=== PATIENT | female | born 1960 | race Caucasian/White ===

== ENCOUNTER 2018-04-24 22:47 | Emergency (ER) | payer BC, OTHER ==
[~2018-04-24] VITALS: Ht 175.3 cm; Wt 90.7 kg
[~2018-04-24 22:47] MED LIST: ALPR2TAB2 OR; CITA-73 OR; INSLANTI SC; INSUPOW SC; OMEP20TA34 OR; PRO20T PO; TRAZ100T2 OR
[2018-04-24] MEDS ORDERED: SODIUM CHLORIDE 0.9% 500 ML IV ONE (23:40)
[2018-04-25 00:01] LABS: Basophils # (auto) 0.2 uL; Basophils % (auto) 1.1 % (0.0-2.0); Eosinophils # (auto) 0.3 uL; Eosinophils % (auto) 2.3 % (0.0-7.0); Hematocrit 33.3 % (36.0-46.0); Hemoglobin 10.2 g/dL (12.2-16.2); Lymphocytes # (auto) 3.2 uL; Lymphocytes % (auto) 22.4 % (10.0-50.0); Mean Corpuscular Hemoglobin 26.3 pg (28.0-32.0); Mean Corpuscular Hgb Conc. 30.6 g/dL (32.0-36.0); Mean Corpuscular Volume 86.1 fL (80.0-100.0); Monocytes # (auto) 1.3 uL; Monocytes % (auto) 9.5 % (0.0-12.0); Neutrophils # (auto) 9.2 uL; Neutrophils % (auto) 64.7 % (37.0-80.0); Platelet Count (auto) 268 10^3/uL (140-450); Red Blood Cells 3.86 10^6/uL (4.0-5.20); Red Cell Distribution Width 17.1 % (11.8-14.3); White Blood Cell 14.2 10^3/uL (4.4-10.8)
[2018-04-25 00:16] LABS: INR 0.88 (0.9-1.15); Partial Thromboplastin Time 25.9 sec (23.78-33.04); Prothrombin Time 9.5 sec (9.27-12.13)
[2018-04-25 00:23] LABS: Alanine Aminotransferase 24 U/L (13-56); Albumin 2.9 g/dL (3.4-5.0); Anion Gap 12 (5-15); Aspartate Aminotransferase 17 U/L (15-37); BUN/Creatinine Ratio 17.6; Blood Urea Nitrogen 39 mg/dL (7-18); Calcium 7.5 mg/dL (8.5-10.1); Carbon Dioxide 19 mmol/L (21-32); Chloride 111 mmol/L (98-107); GFR African American 29 mL/min; GFR Non-African American 24 mL/min; Glucose 92 mg/dL (74-106); Potassium 3.7 mmol/L (3.5-5.1); Sodium 142 mmol/L (136-145)
[2018-04-25 00:27] LABS: Alkaline Phosphatase 128 U/L (45-117); Bilirubin, Total 0.5 mg/dL (0.2-1.0); Total Protein 6.7 g/dL (6.4-8.2)
[2018-04-25 03:06] VITALS: BP 154/74
[2018-04-25 05:00] LABS: Urine Bacteria FEW /hpf (None Seen); Urine Blood Negative /uL (Negative); Urine Specific Gravity 1.009 (1.001-1.035); Urine WBC 7 /hpf (0 - 5); Urine WBC Clumps PRESENT /hpf (None Seen)
== END 2018-04-25 04:23 | disposition home or self-care (01) ==
LOC: EDBD 22:47 → EDUNIT# 22:47 → ER 22:51
DX: E11.649 Type 2 diabetes mellitus with hypoglycemia without coma (principal); E11.22 Type 2 diabetes mellitus with diabetic chronic kidney disease; N18.9 Chronic kidney disease, unspecified; Z79.4 Long term (current) use of insulin; Z88.0 Allergy status to penicillin; Z88.8 Allergy status to other drugs, medicaments and biological substances
CPT/HCPCS: 36415; 70450; 71045; 80053; 81001; 83735; 83880; 84484; 85025; 85610; 85730; 93005; 94761

== ENCOUNTER 2018-12-09 13:59 | Inpatient (IN) | payer MEDICARE ==
[~2018-12-09] VITALS: Ht 170.2 cm; Wt 98.2 kg
[~2018-12-09 13:59] MED LIST changes: +ALLO100T PO; +ALPR0.5T7 PO; -ALPR2TAB2 OR; +ATOR10TA PO; +BUME2TAB3 PO; -CITA-73 OR; +FERR27TA2 PO; +FLUT500M2 IN; +GABA300C10 PO; +GLUC-163 PO; -INSUPOW SC; +IRONTAB33 OR; +MAGN400C2 PO; +METO5TAB56 PO; +MONT4CHW9 PO; +OME40GT GT; -OMEP20TA34 OR; +POTA10TA51 PO; +PRE5T GT; +SERT-135 PO; +TRAM50TA2 PO; -TRAZ100T2 OR
[2018-12-09 16:30] LABS: Basophils # (auto) 0.1 uL; Basophils % (auto) 0.5 % (0.0-2.0); Eosinophils # (auto) 0 uL; Eosinophils % (auto) 0.2 % (0.0-7.0); Hematocrit 40.3 % (36.0-46.0); Hemoglobin 12.5 g/dL (12.2-16.2); Lymphocytes # (auto) 1.6 uL; Lymphocytes % (auto) 11.3 % (10.0-50.0); Mean Corpuscular Hemoglobin 27.5 pg (28.0-32.0); Mean Corpuscular Hgb Conc. 31.1 g/dL (32.0-36.0); Mean Corpuscular Volume 88.3 fL (80.0-100.0); Monocytes # (auto) 1.1 uL; Monocytes % (auto) 7.6 % (0.0-12.0); Neutrophils # (auto) 11.7 uL; Neutrophils % (auto) 80.4 % (37.0-80.0); Platelet Count (auto) 301 10^3/uL (140-450); Red Blood Cells 4.57 10^6/uL (4.0-5.20); White Blood Cell 14.6 10^3/uL (4.4-10.8)
[2018-12-09 16:42] LABS: Calcium 7.9 mg/dL (8.5-10.1); Magnesium 2.2 mg/dL (1.6-2.6); Potassium 3.9 mmol/L (3.5-5.1)
[2018-12-09 16:51] LABS: BUN/Creatinine Ratio 31.3; Bilirubin, Total 0.5 mg/dL (0.2-1.0)
[2018-12-09] MEDS ORDERED: SODIUM CHLORIDE 0.9% 1,000 ML IV ONE ×2 (17:15→22:15)
[2018-12-09] MEDS ORDERED: InsuLIN REG 1unit/0.01ml Soln (100units/ml) IV ONE ×2 (19:00→23:30)
[2018-12-09] MEDS ORDERED: SODIUM CHLORIDE 0.9% 1,000 ML IVB ONE (20:28)
[2018-12-09 20:42] LABS: Partial Thromboplastin Time 27.1 sec (23.78-33.04); Prothrombin Time 10.7 sec (9.27-12.13)
[2018-12-09 21:05] LABS: Urine Bacteria FEW /hpf (None Seen); Urine Blood Negative /uL (Negative); Urine Hyaline Cast FEW /lpf (0 - 2); Urine Specific Gravity 1.012 (1.001-1.035); Urine WBC 1 /hpf (0 - 5)
[2018-12-09] MEDS ORDERED: MORPHINE SULFATE 4 MG/ML SYR/VIAL IV PRN (22:15)
[2018-12-09] MEDS ORDERED: NITROGLYCERIN 0.4 MG SL TAB SL PRN (22:15)
[2018-12-10 05:05] LABS: Basophils # (auto) 0.1 uL; Basophils % (auto) 0.7 % (0.0-2.0); Eosinophils # (auto) 0 uL; Eosinophils % (auto) 0.1 % (0.0-7.0); Hematocrit 37.4 % (36.0-46.0); Hemoglobin 11.7 g/dL (12.2-16.2); Lymphocytes # (auto) 2.2 uL; Lymphocytes % (auto) 18.9 % (10.0-50.0); Mean Corpuscular Hemoglobin 27.3 pg (28.0-32.0); Mean Corpuscular Hgb Conc. 31.2 g/dL (32.0-36.0); Mean Corpuscular Volume 87.5 fL (80.0-100.0); Monocytes # (auto) 1.2 uL; Monocytes % (auto) 10.7 % (0.0-12.0); Neutrophils # (auto) 8.1 uL; Neutrophils % (auto) 69.6 % (37.0-80.0); Platelet Count (auto) 285 10^3/uL (140-450); Red Blood Cells 4.28 10^6/uL (4.0-5.20); Red Cell Distribution Width 15.9 % (11.8-14.3); White Blood Cell 11.7 10^3/uL (4.4-10.8)
[2018-12-10 05:29] LABS: Albumin 2.8 g/dL (3.4-5.0); Calcium 8.1 mg/dL (8.5-10.1); Potassium 3.4 mmol/L (3.5-5.1)
[2018-12-10 05:34] LABS: BUN/Creatinine Ratio 31.4; Bilirubin, Total 0.5 mg/dL (0.2-1.0); Total Protein 6.4 g/dL (6.4-8.2)
--- NOTE | 2018-12-10 08:24 | NUR ---
Telemetry admit from ER [place] admitted to Telemetry unit after SBAR received. Patient confused and unable to orient patient to Heidi Wan RN primary RN, [facility] unit, room 248, bed B, and unit policies regarding patient care and visiting hours. Patient now on continuous telemetry monitoring, tele box # 11 and telemetry reading on arrival to unit is Sinus Tach. Patient weighed by bedscale and encouraged sitter to call if they need something. Will continue to monitor. Note:
--- NOTE | 2018-12-10 08:40 | NUR ---
Dr Bang paged to inform MD of pt BS of 505 from ER report. No orders for insulin in place. Will continue to monitor.
[2018-12-10 08:57] VITALS: BP 145/73
[2018-12-10] MEDS: PANTOPRAZOLE 40 MG/10 ML VIAL IV SCH (09:35)
[2018-12-10] MEDS: ENOXAPARIN SOD 40 MG/0.4 ML SYRINGE SC SCH (09:36)
--- NOTE | 2018-12-10 09:40 | NUR ---
Dr Bang repaged to inform of pt BS from ER report and to request orders for pain meds. No orders for insulin in place. Will continue to monitor.
--- NOTE | 2018-12-10 10:10 | NUR ---
Dr Bang repaged once again. Will continue to monitor.
[2018-12-10 10:13] LABS: Folate (Folic Acid) 19.22 ng/mL (5.38-24)
--- NOTE | 2018-12-10 10:37 | NUR ---
Dr Bang repaged once again. Will continue to monitor.
--- NOTE | 2018-12-10 11:15 | NUR ---
supervisor steel division made aware that have been attempting to page Dr Bang yet no call back received. Will continue to monitor.
--- NOTE | 2018-12-10 11:30 | NUR ---
Received call back from Dr Bang and made aware of blood sugar of 505 at 0726, along with patient moaning in pain, k+3.4, and that patient uses CPAP at home. New orders received for Insulin moderate scale AC/HS Humalog, Lantus 10u SubQ once, DM diet, Hgb A1C and TSH on 12/11/18, UA culture, Allen 5/325 mg PO Q6P moderate pain, CPAP, 40 mEQ K+ PO once, Hydralazine 10 mg IV Q4HP SBP>150. Will continue to monitor.
[2018-12-10] MEDS ORDERED: POTASSIUM CHL 20 Meq TABLET PO ONE (11:45)
[2018-12-10] MEDS ORDERED: hydrALAZINE HCL 20 MG/ML VL IV PRN (11:45)
[2018-12-10] MEDS ORDERED: DEXTROSE (50%) 50ML SYRG IV PRN ×2 (11:45→12:45)
[2018-12-10] MEDS ORDERED: INSULIN LANTUS (GLARGINE) 1 /0.01ml (100units/ml) SC ONE (11:45)
[2018-12-10] MEDS: HYDROcodone-ACET 5/325MG TAB PO PRN ×2 (12:07→20:57)
[2018-12-10] MEDS ORDERED: InsuLIN REG 1unit/0.01ml Soln (100units/ml) SC SCH ×2 (12:07→22:00)
[2018-12-10] MEDS ORDERED: ACCU-CHEK COMFORT CURVE STRIP VI ONE (12:15)
[2018-12-10] MEDS ORDERED: INSULIN LISPRO (HUMAN) 100 UNITS/ML ML SC SCH ×2 (12:22→22:00)
[2018-12-10] MEDS ORDERED: SODIUM CHLORIDE 0.9% 1,000 ML IV ONE (12:30)
--- NOTE | 2018-12-10 12:40 | NUR ---
Dr Bang at bedside made aware BS 581. Made aware the 10 units of Lantus given and to administer the 15 units of Humalog per sliding scale. Will continue to monitor.
[2018-12-10] MEDS: ACCU-CHEK COMFORT CURVE STRIP VI SCH ×3 (12:42→21:19)
[2018-12-10] MEDS: INSULIN LISPRO (HUMAN) 100 UNITS/ML ML SC SCH ×3 (12:42→21:19)
[2018-12-10 13:00] VITALS: BP 158/7
--- NOTE | 2018-12-10 13:59 | NUR ---
Dr Bang paged and made aware that IV Hydralazine is not available and patient's BP 153/66, P114 STach with PVCs. Made aware that PO Hydralizine is available. Asked if he would like to switch to PO or order something else. No orders received per Dr Bang will continue to monitor and await for further orders.
--- NOTE | 2018-12-10 14:50 | NUR ---
URINE Urine collected for urine culture and sent to lab.
[2018-12-10] MEDS: SODIUM CHLORIDE 0.9% 1,000 ML IV SCH (14:57)
--- NOTE | 2018-12-10 16:36 | NUR ---
Received call from Dr Peters. Made aware that consult for nephro due to ARF BUN 69, RUBBER TIRE CURER 2.20. New orders received for random urine sodium, protein, and creatinine, per Dr Peters may obtain from bates bag. Orders also received for CMP & Ph 12/11/18, and for renal U/S. Will continue to monitor.
[2018-12-10 17:00] VITALS: BP 151/62
[2018-12-10] MEDS ORDERED: ACCU-CHEK COMFORT CURVE STRIP VI SCH (17:00)
--- NOTE | 2018-12-10 19:11 | NUR ---
Patient care and report handed off to Karla GAY.
--- NOTE | 2018-12-10 21:30 | NUR ---
Assumed care of patient, product safety and standards engineer at bedside. Patient in bed crying, speech incomprehensible. Turns and responds to name but unable to answer questions such as where she is, the date, or why she's here. Answers "okay"; moans what sounds like "Ray, Ray, Ray" and "owie, owie, owie". When asked if she hurts she says "yes, yes, yes" while grasping her head. Pain meds administered but did not seem to work for very long. Patient continues to be difficult to console. Will continue to monitor.
[2018-12-10 21:37] VITALS: BP 147/62
--- NOTE | 2018-12-10 22:15 | NUR ---
PATIENT INCONTINENT OF SMALL SOFT BM. HYGIENE PERFORMED AND PARTIAL LINEN CHANGE.
[2018-12-11] MEDS: SODIUM CHLORIDE 0.9% 1,000 ML IV SCH (00:26)
[2018-12-11 02:42] VITALS: BP 147/62
[2018-12-11] MEDS: HYDROcodone-ACET 5/325MG TAB PO PRN ×2 (04:11→22:18)
--- NOTE | 2018-12-11 04:18 | NUR ---
NORCO ADMINISTERED. PATIENT CONTINUES TO REPEATEDLY CRY "AUREA, AUREA VILLAR". APPEARS DEHYDRATED. VIGOROUSLY DRANK 1 1/2 CUPS OF WATER. GAVE PILL BUT KEPT ON POCKETING PILL AND SPITTING IT OUT. I THEN SAID THAT I WOULD WASTE THE PILL, BUT SHE LOOKED UP, AND I ASKED IF SHE WANTED IT AND SHE ANSWERED YES. SHE THEN TOOK IT WILLINGLY.
[2018-12-11 04:27] VITALS: BP 184/86
[2018-12-11] MEDS: ACCU-CHEK COMFORT CURVE STRIP VI SCH ×4 (06:24→22:14)
[2018-12-11] MEDS: INSULIN LISPRO (HUMAN) 100 UNITS/ML ML SC SCH ×4 (06:24→22:14)
--- NOTE | 2018-12-11 06:36 | NUR ---
MESSAGE LEFT FOR DR. HAYWOOD. MESSAGE ALSO LEFT BEFORE SHIFT CHANGE BY DAY NURSE. HOSPITAL IS OUT OF IV HYDRALAZINE AND NEED ORDER FOR PO HYDRALAZINE OR OTHER PRN ANTIHYPERTENSIVE MED. MOST RECENT BP WAS 184/86 AND PULSE 100. REQUESTED THAT HE CALL THE UNIT BACK AND ASK FOR MYSELF BEFORE 0730 OR DAY NURSE CARING FOR PATIENT AFTER 0730.
[2018-12-11 06:46] LABS: Potassium 3.1 mmol/L (3.5-5.1)
--- NOTE | 2018-12-11 06:51 | NUR ---
SHIFT END PATIENT IN BED. CONTINUING TO CRY OUT. SITTER AT BEDSIDE. BED IN LOWEST LOCKED POSITION. STILL AWAITING C/B FROM DR. HAYWOOD CARE ENDORSED TO DAY RN.
[2018-12-11 07:05] LABS: Albumin 2.8 g/dL (3.4-5.0); BUN/Creatinine Ratio 26.7; Bilirubin, Total 0.5 mg/dL (0.2-1.0); Calcium 8.5 mg/dL (8.5-10.1); Phosphorus 2.8 mg/dL (2.5-4.90); Total Protein 6.6 g/dL (6.4-8.2)
--- NOTE | 2018-12-11 07:35 | NUR ---
OPENING NOTE Assumed care of patient from NOC RNKarla. Patient awake and responds to name. No S/S of distress/SOB or pain. Sitter at bedside for patient's safety. Guerrero catheter intact/patent and hung below bed. Bed in lowest, locked position with side rails up x3. Fall/seizure precautions in place and call light within reach. Will continue to monitor for changes Q1hr and PRN.
[2018-12-11 09:00] VITALS: BP 120/72
[2018-12-11] MEDS: SOD CHL 0.45% WITH 20MEQ KCL 1,000 ML IV SCH ×2 (10:53→21:00)
[2018-12-11] MEDS: PANTOPRAZOLE 40 MG/10 ML VIAL IV SCH (10:53)
[2018-12-11] MEDS: ENOXAPARIN SOD 40 MG/0.4 ML SYRINGE SC SCH (10:54)
--- NOTE | 2018-12-11 11:56 | NUR ---
PAGED Paged Dr. Buitrago regarding EEG. Tech unable to perform procedure secondary to patient's inability to sit still with eyes closed. Awaiting call back.
[2018-12-11 13:00] VITALS: BP 138/70
--- NOTE | 2018-12-11 14:50 | NUR ---
AWARE Dr. Buitrago aware of EEG, no new orders at this time. Will continue to monitor.
--- NOTE | 2018-12-11 16:18 | NUR ---
Patient arrived to room 290A from 248B. Awtg report from previous nurse. Will go to see patient now.
--- NOTE | 2018-12-11 16:33 | NUR ---
TRANSFER OF CARE Transferred care of patient to RN
--- NOTE | 2018-12-11 16:33 | NUR ---
TRANSFER Received report from Isabel GAY from [facility]. Patient still ALOC, with 1:1 sitter in room, bed locked and in low position, rails up x2, call light in reach. MD VISIT Dr. Bang here to see patient and spoke to the on the telephone at [phone]. CALL TO [facility] Called [facility] at [phone] and received a message that the office is closed and will be open on Friday to get the medical records. The number given to call on Friday is [phone].
[2018-12-11 17:00] VITALS: BP 179/68
--- NOTE | 2018-12-11 17:32 | NUR ---
ELEVATED BP THE only order is for apresoline iv and it is not available from the pharmacy. The pharmacy suggested metoprolol iv since the patient is altered. Called the hospitalist and awtg call back,so we can get an order to get the pb down from 179/69.
--- NOTE | 2018-12-11 18:10 | NUR ---
NO CALL BACK FROM HOSPITALIST PAGED DR. GALINDO AGAIN FOR TREATMENT OF ELEVATED BP.
[2018-12-11] MEDS ORDERED: LABETALOL HCL 5 MG/ML ML 20ML VIAL IV PRN (18:30)
--- NOTE | 2018-12-11 19:33 | NUR ---
SHIFT REPORT REPORT ENDORSED TO NIGHT RN, ROMÁN. PT resting in bed, bed in low position, locked, rails up x 2, call light in reach. Sitter at bedside. No distress noted. Notified Dr. Bang of elevated bp of 177/106 and need for something other than labatolol and apresoline which are both not available. Endorsed this the nurse Román as well.
--- NOTE | 2018-12-11 19:35 | NUR ---
MEDICAL RECORDS FROM [facility] CALL[facility] to obtain MRI of Nov 25, but they office was closed and the answering machine said to call back on Friday to get information on obtaining records. This was endorsed to DEIDRA Mata from overnight babysitter.
--- NOTE | 2018-12-11 19:40 | NUR ---
Opening Shift Note Received report from Ligia GAY. Assumed care of patient awake and alert but uttering incomprehensible sounds. Sitter at bedside for safety. No S/S of distress/SOB or pain. Instructed on POC and to call for assist PRN. Fall precaution measures in place, will continue to monitor for changes Q1hr and PRN.
--- NOTE | 2018-12-11 19:56 | NUR ---
Received call from Ligia GAY, states she received an order from Dr. Bang, Lopressor 5mg IV Q2HPRN for SBP>160.
--- NOTE | 2018-12-11 22:30 | NUR ---
PT SEEN FOR CPAP USE DURING NIGHT. PT SITTING IN BED CRYING NOT RESPONDING TO RT. SITTER BEDSIDE. PT PULLING ON LINES AND WILL NOT RANJEET CPAP. WILL REATTEMPT AT LATER TIME.
--- NOTE | 2018-12-12 06:18 | NUR ---
Paged hospitalist re: BS of 450 per protocol. Awaiting for call back.
[2018-12-12] MEDS: ACCU-CHEK COMFORT CURVE STRIP VI SCH ×4 (06:24→21:37)
[2018-12-12] MEDS: INSULIN LISPRO (HUMAN) 100 UNITS/ML ML SC SCH ×4 (06:25→21:37)
--- NOTE | 2018-12-12 06:37 | NUR ---
Hospitalist Wilfred called back and relayed the BS of 450, continue monitoring.
--- NOTE | 2018-12-12 07:04 | NUR ---
Opening Shift Note Assumed care of patient, awake and alert. No S/S of distress/SOB or pain. Instructed on POC and to call for assist PRN, will continue to monitor for changes Q1hr and PRN.
--- NOTE | 2018-12-12 08:03 | NUR ---
Care endorsed to Orville GAY.
[2018-12-12 09:00] VITALS: BP 149/66
[2018-12-12] MEDS ORDERED: LORazepam 2MG/ML-1ML VIAL IV ONE (09:30)
[2018-12-12] MEDS: PANTOPRAZOLE 40 MG/10 ML VIAL IV SCH (09:43)
[2018-12-12] MEDS: ENOXAPARIN SOD 40 MG/0.4 ML SYRINGE SC SCH (09:44)
[2018-12-12] MEDS: HALOPERIDOL LACTATE 5 MG/ML INJ VIAL IM PRN (09:45)
[2018-12-12] MEDS: SOD CHL 0.45% WITH 20MEQ KCL 1,000 ML IV SCH ×2 (09:46→16:15)
[2018-12-12] MEDS ORDERED: HALOPERIDOL LACTATE 5 MG/ML INJ VIAL IM ONE (10:15)
--- NOTE | 2018-12-12 12:00 | NUR ---
WOUND CARE NOTE: IN TO SEE PATIENT WITH LOW JUDITH SCORE OF 12 AT THIS TIME FOR SKIN INTEGRITY MONITORING. PATIENT IS WOUND FREE AT THIS TIME, BUT IS ALOC. SHE CAN MOVE AT WILL, BUT NEEDS ASSISTANCE BY STAFF D/T HER CONFUSION. SHE IS NOT EATING AT THIS TIME. DIETARY CONSULT HAS BEEN ORDERED. RECOMMEND: FREQUENT TURN SCHEDULE Q 2 HOURS, PRN CONDITION PERMITS, WITH PRESSURE REDISTRIBUTION USING PILLOWS/WEDGES, BID/PRN APPLICATION WITH MOISTURE BARRIER CREAM, COVERING UPPER MEDIAL SACRUM WITH OPTIFOAM GENTLE SACRAL DRESSING, DIETARY CONSULT, CONTINUED MONITORING BY WOUND CARE TEAM. SKIN/WOUND CARE PLAN WAS IMPLEMENTED.
[2018-12-12 13:00] VITALS: BP 158/76
[2018-12-12 17:37] VITALS: BP 155/77
--- NOTE | 2018-12-12 19:32 | NUR ---
Change of shift given to mold shifter RN. No distress noted.
--- NOTE | 2018-12-12 19:56 | NUR ---
MD HAYWOOD IN TO SEE PT REQUESTED BY TO CALL TO NOTIFY THAT MD HAD LEFT A MESSAGE. ATTEMPTED TO CONTACT BUT NO RESPONSE. WILL ATTEMPT AT A LATER TIME.
--- NOTE | 2018-12-12 20:00 | NUR ---
OPENING NOTE RECEIVED REPORT FROM DAYSHIFT RN. ASSUMING ROLE OF CARE OF PATIENT AT THIS TIME. PATIENT SHOWS NO SIGN OF SHORTNESS OF BREATH AND PATIENT DOES NOT VERBALIZE PAIN. PATIENT APPEARS UPSET AT THIS TIME HOWEVER. SITTER AT BEDSIDE. PATIENT ORIENTED TO HOSPITAL AND TO PLAN OF CARE FOR THE NIGHT. PATIENT UNABLE TO VERBALIZE UNDERSTANDING. BED LOWERED, CALL LIGHT WITHIN REACH, AND PATIENT WILL BE ROUNDED ON EVERY HOUR AND NEEDED.
[2018-12-12 21:37] VITALS: BP 155/87
[2018-12-13] MEDS: SOD CHL 0.45% WITH 20MEQ KCL 1,000 ML IV SCH ×2 (01:26→12:15)
[2018-12-13 04:05] VITALS: BP 151/87
[2018-12-13] MEDS: ACCU-CHEK COMFORT CURVE STRIP VI SCH ×4 (06:06→20:45)
[2018-12-13] MEDS: INSULIN LISPRO (HUMAN) 100 UNITS/ML ML SC SCH ×4 (06:06→20:00)
--- NOTE | 2018-12-13 06:31 | NUR ---
HOSPITALIST PAGED BLOOD SUGAR FOR 0600 442. HUMALOG 15 UNITS GIVEN. AFTER 20 MINUTES BLOOD SUGAR 435. WILL PAGE HOSPITALIST.
[2018-12-13] MEDS: METOPROLOL TARTRATE 1MG/1ML-5ML VIAL IV PRN (06:50)
--- NOTE | 2018-12-13 06:58 | NUR ---
HOSPITALIST PAGED AGAIN UNABLE TO REACH HOSPITALIST. PAGE SENT OUT TWICE. PATIENT'S BLOOD SUGAR ON RECHECK 471. WILL ENDORSE TO SANTOSH GAY.
--- NOTE | 2018-12-13 07:04 | NUR ---
Opening Shift Note Assumed care of patient, awake and confused. No S/S of distress/SOB or pain. Instructed on POC and to call for assist PRN, will continue to monitor for changes Q1hr and PRN.
--- NOTE | 2018-12-13 07:10 | NUR ---
RECEIVED ORDERS RECEIVED CALL BACK FROM HOSPITALIST. NEW ORDERS PLACED. WILL ENDORSE TO DAYSHIFT RN.
--- NOTE | 2018-12-13 07:22 | NUR ---
Paged Dr. Bang regarding new orders. Awaiting call back.
[2018-12-13] MEDS ORDERED: SODIUM CHLORIDE 0.9% 500 ML IV ONE (07:30)
--- NOTE | 2018-12-13 07:50 | NUR ---
Dr. Bang returned page. MD aware patient has CKDS4, CHF, and high BP. Clarified administration of fluid bolus. MD aware Na level is 151. Per MD, continue with administration.
--- NOTE | 2018-12-13 09:30 | NUR ---
EEG UNSUCCESSFUL. THIRD ATTEMPT. PATIENT IS STILL HIGHLY AGITATED AND CONFUSED. DOES NOT FOLLOW COMMAND. CURRENTLY UNDER 1:1 SITTER.
[2018-12-13] MEDS ORDERED: ACCU-CHEK COMFORT CURVE STRIP VI SCH (10:00)
[2018-12-13] MEDS: INSULIN LANTUS (GLARGINE) 1 /0.01ml (100units/ml) SC SCH (10:30)
[2018-12-13] MEDS: ENOXAPARIN SOD 40 MG/0.4 ML SYRINGE SC SCH (10:31)
[2018-12-13] MEDS: PANTOPRAZOLE 40 MG/10 ML VIAL IV SCH (10:31)
[2018-12-13 10:33] LABS: Basophils # (auto) 0.1 uL; Basophils % (auto) 0.6 % (0.0-2.0); Eosinophils # (auto) 0 uL; Eosinophils % (auto) 0.1 % (0.0-7.0); Hematocrit 38.9 % (36.0-46.0); Hemoglobin 12.3 g/dL (12.2-16.2); Lymphocytes # (auto) 2.5 uL; Lymphocytes % (auto) 14.7 % (10.0-50.0); Mean Corpuscular Hgb Conc. 31.6 g/dL (32.0-36.0); Mean Corpuscular Volume 88.6 fL (80.0-100.0); Monocytes # (auto) 1.2 uL; Monocytes % (auto) 7.2 % (0.0-12.0); Neutrophils # (auto) 13.1 uL; Neutrophils % (auto) 77.4 % (37.0-80.0); Platelet Count (auto) 263 10^3/uL (140-450); Red Blood Cells 4.39 10^6/uL (4.0-5.20); Red Cell Distribution Width 16.4 % (11.8-14.3)
[2018-12-13 10:44] LABS: Alanine Aminotransferase 58 U/L (13-56); Albumin 2.7 g/dL (3.4-5.0); Anion Gap 13 (5-15); Aspartate Aminotransferase 79 U/L (15-37); BUN/Creatinine Ratio 21.8; Blood Urea Nitrogen 43 mg/dL (7-18); Calcium 8.4 mg/dL (8.5-10.1); Carbon Dioxide 19 mmol/L (21-32); Chloride 126 mmol/L (98-107); GFR African American 33 mL/min; GFR Non-African American 28 mL/min; Glucose 276 mg/dL (74-106); Sodium 158 mmol/L (136-145)
[2018-12-13 10:46] LABS: Alkaline Phosphatase 127 U/L (45-117); Bilirubin, Total 0.5 mg/dL (0.2-1.0); Total Protein 6.8 g/dL (6.4-8.2)
--- NOTE | 2018-12-13 11:38 | NUR ---
Nutrition consult/assessment Notes please see attached link for complete assessment Est. Needs ABW [id number] kcal (23-25 kcal/kgBW), 61-77 gms pro (0.8-1.0 gms/kgBW d/t elev RFT CKD). Will continue to monitor pertinent labs and reassess nutrient need prn Addendum: 12/13/18 at [address] Amended: Links added.
[2018-12-13] MEDS ORDERED: LORazepam 2MG/ML-1ML VIAL IV PRN (12:00)
[2018-12-13] MEDS ORDERED: INSULIN LISPRO (HUMAN) 100 UNITS/ML ML SC SCH (12:00)
--- NOTE | 2018-12-13 13:50 | NUR ---
Hard object in back Patient's family member at bedside. Assessed lower right sacrum. Hard protruding object felt when touched. Per family, they were told the patient cannot receive a MRI. Family stated he thinks the device was made by [employer] Dr. Buitrago paged regarding MRI order.
--- NOTE | 2018-12-13 15:37 | NUR ---
PATIENT CANNOT RECEIVE MRI Explained to MD object can be felt in back and unknown device was made by [employer]. MD cancelled MRI.
[2018-12-13 18:10] VITALS: BP 154/68
--- NOTE | 2018-12-13 19:30 | NUR ---
Change of shift given to head start teacher RN. No distress noted.
--- NOTE | 2018-12-13 19:45 | NUR ---
Opening Shift Note: A&Ox1, not baseline at home. Room air, patient unable to state presence of pain, and currently bedrest. Per nurse report, patient was previously A&Ox4 and ambulated independently. Bed locked in lowest position, side rails up x2, call light within reach, and sitter at bedside for patient safety. IV 20 g in right forearm running 0.45% NS with 20 meq KCl running at 100 ml/hr inserted on 12/13/18. Skin: generalized bruising present. Guerrero inserted on 12/10/18 for prolonged immobilization. Seizure precautions in place. POC unable to be discussed with patient related to confusion. Will reposition Q2H.
[2018-12-13] MEDS: ATORVASTATIN 20 MG TAB PO SCH (20:45)
--- NOTE | 2018-12-13 20:47 | NUR ---
UA and drug screen sent to lab via [facility] system.
[2018-12-13 21:29] LABS: Urine Bacteria FEW /hpf (None Seen); Urine Blood 2+ /uL (Negative); Urine Hyaline Cast FEW /lpf (0 - 2); Urine Mucus FEW (None Seen); Urine Specific Gravity 1.016 (1.001-1.035); Urine WBC 7 /hpf (0 - 5)
[2018-12-13 21:43] LABS: Alcohol, Urine < 3.0 mg/dL (0-5); Amphetamine Screen, Urine NEGATIVE (NEGATIVE); Barbiturate Scree,Urine NEGATIVE (NEGATIVE); Benzodiazephine Screen, Urine POSITIVE (NEGATIVE); Cannabinoid Screen, Urine NEGATIVE (NEGATIVE); Cocaine Screen, Urine NEGATIVE (NEGATIVE); Opiate Scree,Urine NEGATIVE (NEGATIVE); Phencyclidine Screen, Urine NEGATIVE (NEGATIVE)
[2018-12-14] MEDS: SOD CHL 0.45% WITH 20MEQ KCL 1,000 ML IV SCH (00:13)
[2018-12-14] MEDS: ACCU-CHEK COMFORT CURVE STRIP VI SCH ×6 (00:14→21:03)
[2018-12-14] MEDS: METOPROLOL TARTRATE 1MG/1ML-5ML VIAL IV PRN ×2 (04:00→13:24)
[2018-12-14] MEDS: INSULIN LISPRO (HUMAN) 100 UNITS/ML ML SC SCH ×6 (04:00→20:00)
[2018-12-14 06:03] LABS: BUN/Creatinine Ratio 20.7; Calcium 8.3 mg/dL (8.5-10.1); Potassium 3.9 mmol/L (3.5-5.1)
--- NOTE | 2018-12-14 06:44 | NUR ---
RECEIVED CRITICAL LAB VALUE HOSPITALIST PAGED FOR CRITICAL SODIUM LEVEL OF 162. PRIMARY RN NOTIFIED. PATIENT APPEARS STABLE AT THIS TIME. WILL CONTINUE TO MONITOR.
--- NOTE | 2018-12-14 07:30 | NUR ---
Telephone call from Dr. Sylvester: New orders received: increase 0.45% NS with 20 meq KCL from 100 ml/hr to 150 ml/hr; place order for Echocardiogram; discontinue metoprolol prn order and change labatalol order from 10 mg Q2H to Q4H for SBP >150 prn; notify nephrology of critical sodium level of 162.
[2018-12-14] MEDS ORDERED: SOD CHL 0.45% WITH 20MEQ KCL 1,000 ML IV SCH (07:45)
[2018-12-14] MEDS ORDERED: LABETALOL HCL 5 MG/ML ML 20ML VIAL IV PRN (07:45)
--- NOTE | 2018-12-14 07:50 | NUR ---
Page sent to Dr. Waters to inform of critical sodium of 162.
--- NOTE | 2018-12-14 08:00 | NUR ---
Update: A&Ox1, responds to name; not patient baseline. Room air and bedrest related to weakness and acute confusion. Bed locked in lowest position, side rails up x2, call light within reach, and sitter present at bedside for patient safety. IVF increased to 150 ml/hr per Dr. Sylvester in right wrist 20 g inserted on 12/13/18. Skin has generalized bruising present. Seizure precautions in place. Guerrero inserted on 12/10/18 for strict I/O. Will continue to round and reposition prn.
--- NOTE | 2018-12-14 08:12 | NUR ---
Page sent to Dr. Sylvester: labatalol is on back order from pharmacy. Need new prn order for high blood pressure. Current BP 166/87 and HR 105.
[2018-12-14 09:10] VITALS: BP 187/85
--- NOTE | 2018-12-14 09:26 | NUR ---
Page sent to Dr. Bernard falk for critical sodium level of 162.
--- NOTE | 2018-12-14 10:20 | NUR ---
Page return from Dr. Wagner: Change IV fluids from 0.45% NS with 20 KCl at 150 ml/hr to D5W at 80 ml/hr related to high sodium of 162 and add communication order of 250 cc of free water Q4H.
[2018-12-14] MEDS: PANTOPRAZOLE 40 MG/10 ML VIAL IV SCH (11:00)
[2018-12-14] MEDS: INSULIN LANTUS (GLARGINE) 1 /0.01ml (100units/ml) SC SCH (11:01)
[2018-12-14] MEDS: ENOXAPARIN SOD 40 MG/0.4 ML SYRINGE SC SCH (11:01)
[2018-12-14] MEDS: D5W 5% 1,000 ML IV SCH (11:02)
--- NOTE | 2018-12-14 12:39 | NUR ---
Return page from Dr. Sylvester: Informed that labetalol is on back order. New order for metoprolol 10 mg Q6H PRN for SBP greater than 150.
--- NOTE | 2018-12-14 13:00 | NUR ---
EGG technicians at bedside. Addendum: 12/14/18 at 1418 by PHOEBE WERNER RN EEG*
[2018-12-14 13:10] VITALS: BP 161/92
--- NOTE | 2018-12-14 14:18 | NUR ---
Request for medical records sent to [facility] and [facility].
--- NOTE | 2018-12-14 14:48 | NUR ---
Received report from DEIDRA Soriano and assumed care of patient.
[2018-12-14 17:00] VITALS: BP 143/77
--- NOTE | 2018-12-14 17:00 | NUR ---
Patient linen change Patient had incontinent stool .Skin integrity assessed for any changes. Excoriation noted in bilateral groin and sacrum .Cleanse sacrum and groin with soap and water. Kept clean and dry . Z guard applied to affected area. Linens changed. Patient repositioned for comfort.
--- NOTE | 2018-12-14 20:13 | NUR ---
Called/paged called re: patient's who is at the bedside and want to talk to him re: patient's condition and plan of care. Waiting for call back. Continue care.
--- NOTE | 2018-12-14 21:29 | NUR ---
Patient's waiting at the bedside for Dr Bang to come. Updated patient's of procedures done today and to discuss with MD about the result.Instruction from patient's not to do any MRI to patient because patient have a shunt done at [facility].
[2018-12-14 22:00] VITALS: BP 195/94
--- NOTE | 2018-12-14 23:30 | NUR ---
Dr Bang seen the patient. Inform him that patient not eating . Sleepy most of the time. Patient's wanted to talk to him personally. Dr Bang said to call patient's now.
--- NOTE | 2018-12-14 23:45 | NUR ---
Patient's came in and waiting for Dr Bang at the bedside. But Dr Bang left the hospital and advised to let patient's call him in AM.
[2018-12-15] VITALS (7 sets, daily range): BP systolic 138–171; BP diastolic 70–90
[2018-12-15] MEDS: ATORVASTATIN 20 MG TAB PO SCH ×3 (00:53→22:58)
[2018-12-15] MEDS: ACCU-CHEK COMFORT CURVE STRIP VI SCH ×6 (01:02→22:03)
[2018-12-15] MEDS: INSULIN LISPRO (HUMAN) 100 UNITS/ML ML SC SCH ×6 (01:03→20:00)
[2018-12-15] MEDS: D5W 5% 1,000 ML IV SCH ×3 (01:07→15:15)
--- NOTE | 2018-12-15 02:00 | NUR ---
Patient linen change Patient had another incontinent stool. Skin integrity assessed for any changes. Z guard applied to bilateral groin and sacrum.Linens changed. Patient repositioned for comfort.
--- NOTE | 2018-12-15 07:25 | NUR ---
Opening Shift Note Assumed care of patient, patient currently sleeping, eyes closed, chest rise noted. No S/S of distress/SOB or pain noted. Instructed on POC and to call for assist PRN, patient non-verbal at this time, unable to verbalize understanding, eyes opens when name is called or light tactile stimuli, Guerrero patent draining via gravity, urine yellow and sediment present, sitter at bedside for safety, aspiration and fall precautions in place, will continue to monitor for changes Q1hr and PRN.
[2018-12-15] MEDS: PANTOPRAZOLE 40 MG/10 ML VIAL IV SCH (09:35)
[2018-12-15] MEDS: ENOXAPARIN SOD 40 MG/0.4 ML SYRINGE SC SCH (09:43)
[2018-12-15] MEDS: INSULIN LANTUS (GLARGINE) 1 /0.01ml (100units/ml) SC SCH (09:44)
[2018-12-15 12:05] LABS: Basophils # (auto) 0.1 uL; Basophils % (auto) 0.6 % (0.0-2.0); Eosinophils # (auto) 0.3 uL; Eosinophils % (auto) 2.6 % (0.0-7.0); Hemoglobin 12.5 g/dL (12.2-16.2); Lymphocytes # (auto) 2.6 uL; Lymphocytes % (auto) 21.2 % (10.0-50.0); Mean Corpuscular Hemoglobin 27.6 pg (28.0-32.0); Mean Corpuscular Hgb Conc. 31.3 g/dL (32.0-36.0); Mean Corpuscular Volume 88.2 fL (80.0-100.0); Monocytes # (auto) 1.1 uL; Monocytes % (auto) 8.6 % (0.0-12.0); Neutrophils # (auto) 8.2 uL; Nucleated Red Blood Cells % 0.1 %; Platelet Count (auto) 185 10^3/uL (140-450); Red Blood Cells 4.53 10^6/uL (4.0-5.20); Red Cell Distribution Width 16.6 % (11.8-14.3); White Blood Cell 12.2 10^3/uL (4.4-10.8)
[2018-12-15 12:23] LABS: Albumin 2.5 g/dL (3.4-5.0); Calcium 8.2 mg/dL (8.5-10.1); Potassium 3.6 mmol/L (3.5-5.1)
[2018-12-15 12:28] LABS: BUN/Creatinine Ratio 16.7; Bilirubin, Total 0.4 mg/dL (0.2-1.0); Total Protein 6.4 g/dL (6.4-8.2)
--- NOTE | 2018-12-15 12:30 | NUR ---
200 CC OF FREE WATER GIVEN PO WILL GIVE REMAINING 50 WHEN PT AGREES, ASPIRATION PRECAUTIONS IN PLACE, PT TOLERATED WELL, CONT CARE Addendum: 12/15/18 at 1329 by Yarelis Toro RN TRUE TIME 1250
--- NOTE | 2018-12-15 12:33 | NUR ---
SWALLOW EVALUATION CLEMENCIA SPEECH THERAPIST AT BEDSIDE
[2018-12-15] MEDS: METOPROLOL TARTRATE 1MG/1ML-5ML VIAL IV PRN (12:55)
--- NOTE | 2018-12-15 12:55 | NUR ---
METOPROLOL TARTRATE IV 5MG GIVEN CLARIFIED DOSE WITH DR HAYWOOD AND MD ORDERED TO GIVE 5MG IV AND NOT 10MG, BP 171/90 P 85, ON CONT TELEMETRY, CONT CARE
--- NOTE | 2018-12-15 12:57 | NUR ---
SWALLOW EVALUATED WITH FAMILY PRESENT. PATIENT VERY ALOC, NONVERBAL. PATIENT WAS ABLE TO TOLERATE TRIAL OF PUREE DIET TEXTURE WITH NECTAR THICKENED LIQUIDS WITH NO OVERT SIGNS OR SYMPTOMS OF ASPIRATION. PATIENT HAS OWN TEETH. NURSING NOTIFIED.
--- NOTE | 2018-12-15 14:55 | NUR ---
LELIA PERSAUD'S NOTED PT ASYMPTOMATIC, DR MANPREET HUFF MD UPDATED ON ECHO RESULTS AND STATES HE WILL COME AND SEE PT TODAY, CONT CARE
--- NOTE | 2018-12-15 15:10 | NUR ---
NEPHELISA DYE HERE TO SEE PT, NOT AT BEDSIDE AND CALLED, VOICEMAIL LEFT, CONT CARE
--- NOTE | 2018-12-15 16:15 | NUR ---
250CC OF FREE WATER PO GIVEN PT TOLERATED WELL, CONT CARE
--- NOTE | 2018-12-15 16:20 | NUR ---
BS 183 4 UNITS OF HUMALOG GIVEN SC
--- NOTE | 2018-12-15 16:45 | NUR ---
NEURO DR BRUNSON IN TO SEE PT, NO NEW ORDERS RECEIVED, CONT CARE
--- NOTE | 2018-12-15 18:01 | NUR ---
CARDIOLOGY DR CASE AT BEDSIDE, DISCUSSING POC WITH , CONT CARE
[2018-12-15] MEDS: Glucerna Carbsteady SHAKE Vanilla 8oz PO SCH ×2 (18:20→22:59)
--- NOTE | 2018-12-15 19:10 | NUR ---
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
--- NOTE | 2018-12-15 19:30 | NUR ---
received pt from day rn poc reviewed
--- NOTE | 2018-12-15 19:45 | NUR ---
pts spouse at bedside all questions and concerns addressed
[2018-12-16] MEDS: ACCU-CHEK COMFORT CURVE STRIP VI SCH ×6 (00:32→20:09)
[2018-12-16] MEDS: INSULIN LISPRO (HUMAN) 100 UNITS/ML ML SC SCH ×7 (00:33→20:00)
[2018-12-16] MEDS: D5W 5% 1,000 ML IV SCH ×3 (03:54→21:15)
[2018-12-16 04:55] VITALS: BP 161/84
--- NOTE | 2018-12-16 05:52 | NUR ---
pt restless during the night refusing meds sitter at bedside for pts safety,
[2018-12-16] MEDS: Glucerna Carbsteady SHAKE Vanilla 8oz PO SCH ×4 (06:13→22:00)
[2018-12-16] MEDS: METOPROLOL TARTRATE 1MG/1ML-5ML VIAL IV PRN ×2 (06:32→23:03)
--- NOTE | 2018-12-16 08:00 | NUR ---
RECEIVED PT RESTING IN BED, CALL LIGHT WITHIN REACH, SITTER AT BED SIDE, SITTER AT BED SIDE, PT REPOSITION, HAYES DRAINING TO GRAVITY, WILL CONTINUE TO MONITOR PT.
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
[2018-12-16] MEDS: ENOXAPARIN SOD 40 MG/0.4 ML SYRINGE SC SCH ×2 (08:57→10:00)
[2018-12-16] MEDS: PANTOPRAZOLE 40 MG/10 ML VIAL IV SCH (08:57)
[2018-12-16] MEDS: INSULIN LANTUS (GLARGINE) 1 /0.01ml (100units/ml) SC SCH (08:57)
[2018-12-16 09:00] VITALS: BP_SYST 108; BP_SYST 169; BP_DIAS 59; BP_DIAS 81
--- NOTE | 2018-12-16 09:22 | NUR ---
[place] AND CLINICALS [place] [facility] [place] HIGHER LEVEL. AWAITING CALL BACK.
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
--- NOTE | 2018-12-16 11:00 | NUR ---
PAGED DR. BRUNSON / NEUROLOGIST PER PT'S 'S REQUEST, PT'S WANT TO KNOW THE EEG RESULTS. AWAITING FOR CALL BACK.
--- NOTE | 2018-12-16 11:45 | NUR ---
TRANSFER BACK AGREEMENT FA[place]ED [place] [facility]
--- NOTE | 2018-12-16 11:47 | NUR ---
Nutrition Follow-up Notes Wt.: 92.9 kg Pt was not awake, not co operative per RN. pt s/p ST eval and now advanced to CCHO 45 gm cardiac pureed diet with inadequate PO of < 50% x 4 per RN doc along with Glucerna 1 carton qid. Est. Needs ABW [id number] kcal (23-25 kcal/kgBW), 61-77 gms pro (0.8-1.0 gms/kgBW d/t elev RFT CKD). Will continue to monitor pertinent labs and reassess nutrient need prn Labs: BUN 26 H, CREAT 1.56 H, GLU 156 H, CA 8.2 L, ALB 2.5 L. Skin: Jl scale 16, mod risk, pt with redness on groin per RN doc GI: Pt had 2 BM today per shop estimator. PES: Altered nutrition related lab values r/t acute/chronic medical condition aeb hyperglycemia, mod hypoalb, elev RFT A1C. Decreased nutrient needs r/t adiposity aeb pt`s high BMI of 32.6 kgm2 Inadequate PO intake r/t current mental condition aeb pt`s refusing to eat with ALOC Will continue to monitor PO intake, skin status, pertinent labs and weight trend. F/u in 3-5 days. Rec.: 1.) consider alternate nutrition support if pt continues to refuse PO. 2) refer to CDE on DC. 3) continue assistance with meals per ST eval 4) continue current plan of care.
[2018-12-16 13:00] VITALS: BP 169/77
--- NOTE | 2018-12-16 16:22 | NUR ---
FOLLOW UP CALL TO [facility] TO INQUIRE ABOUT TRANSFER. AT THIS TIME THERE IS NOT AN ACCEPTING PHYSICIAN. THEY WILL CONTINUE TO WORK ON IT.
[2018-12-16 16:25] LABS: BUN/Creatinine Ratio 13.9; Calcium 7.7 mg/dL (8.5-10.1); Potassium 3.3 mmol/L (3.5-5.1)
--- NOTE | 2018-12-16 16:55 | NUR ---
DR. BRUNSON / NEUROLOGY AT THE BED SIDE TO TALK TO PT'S , DOCTOR INFORMED THAT PT'S REQUESTING EEG RESULTS.
[2018-12-16 17:00] VITALS: BP 153/79
--- NOTE | 2018-12-16 17:00 | NUR ---
DR. HAYWOOD, DR. BRUNSON, AND LEONIDAS ORDAZ AT BED SIDE TALKING TO PT'S , DR. HAYWOOD INFORMED PT'S SODIUM AND POTASSIUM LEVEL FOR TODAY. ORDERS RECEIVED TO GIVE A ONE TIME DOSE OF POTASSIUM 20MEQ IV,
[2018-12-16] MEDS ORDERED: POTASSIUM CHL 20MEQ/100ML 100 ML IV ONE (18:00)
--- NOTE | 2018-12-16 18:30 | NUR ---
DR. DYE / NEPHELISA AT UNIT TO SEE PT, DOCTOR INFORMED REGARDING PT'S CURRENT SODIUM LEVE OF 154, THAT PT IS REFUSING TO DRINK THE WATER, PT ONLY TAKING A FEW SIPS OF WATER, AND PT REFUSING TO EAT HER FOOD.
--- NOTE | 2018-12-16 19:00 | NUR ---
OPENING SHIFT NOTE Received report from day shift RN. Patient is in bed with no s/s of distress at this time. Patient is aphasic and can open eyes and follow you. Bed is in lowest/locked position with side rails up X's 2. Will continue to monitor and round hourly/PRN.
--- NOTE | 2018-12-16 20:33 | NUR ---
SPOKE WITH Roni Spoke with promotions representative from [facility] [place]. Informed him of patient's status is still telemetry. He informed me that he reached out and left a message for doctor Mclaughlin and still awaiting a response back as of now.
[2018-12-16] MEDS: ATORVASTATIN 20 MG TAB PO SCH (22:58)
--- NOTE | 2018-12-17 02:43 | NUR ---
LINEN CHANGE Patient had a bowel movement. Patient was cleaned with damp, warm wash clothes and applied z guard after drying. Patient tolerated well. New linen and robe was given at this time.
[2018-12-17] MEDS: INSULIN LISPRO (HUMAN) 100 UNITS/ML ML SC SCH ×6 (04:09→19:51)
[2018-12-17] MEDS: ACCU-CHEK COMFORT CURVE STRIP VI SCH ×6 (04:09→19:51)
[2018-12-17 05:25] VITALS: BP 136/86
[2018-12-17] MEDS: Glucerna Carbsteady SHAKE Vanilla 8oz PO SCH ×4 (06:00→20:41)
--- NOTE | 2018-12-17 07:30 | NUR ---
OPENING SHIFT NOTE Received report from assistant casino shift manager RN. Patient is in bed with no s/s of respiratory distress at this time. Patient is aphasic and can open eyes and follow commands. Bed is in lowest/locked position with side rails up X's 2. Sitter at bedside. Will continue to monitor hourly/PRN.
[2018-12-17] MEDS: D5W 5% 1,000 ML IV SCH (08:34)
[2018-12-17] MEDS: PANTOPRAZOLE 40 MG/10 ML VIAL IV SCH (10:37)
[2018-12-17] MEDS: ENOXAPARIN SOD 40 MG/0.4 ML SYRINGE SC SCH (10:37)
[2018-12-17] MEDS: INSULIN LANTUS (GLARGINE) 1 /0.01ml (100units/ml) SC SCH (10:49)
--- NOTE | 2018-12-17 11:00 | NUR ---
Dr. Buitrago Per Dr. Buitrago, he will call [facility] [place] at [phone] when he rounds patient later today.
--- NOTE | 2018-12-17 11:02 | NUR ---
PATIENT HAS BEEN PUT ON WILL CALL WITH [facility]. PLEASE CALL [phone] WHEN PATIENT HAS BEEN ACCEPTED AT [facility].
--- NOTE | 2018-12-17 11:10 | NUR ---
, Nicolás at bedside, explained POC with charge nurse, Matias.
[2018-12-17 12:14] VITALS: BP 130/79
[2018-12-17 16:49] VITALS: BP 136/81
--- NOTE | 2018-12-17 16:52 | NUR ---
Nicolás, patient's contacted and informed re: [place] Buitrago [place] [facility] [place] states that they will call back Dr. Buitrago.
[2018-12-17] MEDS: HYDROcodone-ACET 5/325MG TAB PO PRN (17:51)
--- NOTE | 2018-12-17 19:10 | NUR ---
CLOSING NOTE PATIENT RESTING IN BED, NO SIGNS OF DISTRESS NOTED. REPORT GIVEN TO NIGHT RN.
--- NOTE | 2018-12-17 19:10 | NUR ---
OPENING SHIFT NOTE Received report from day shift RN. Bedside report was given. Patient is currently resting in bed with no s/s of distress noted. Bed is in lowest/locked position with side rails up X's 2. Side rails are padded for seizure precautions. Call light is within reach of patient. Will continue to monitor and round hourly/PRN.
[2018-12-17] MEDS: ATORVASTATIN 20 MG TAB PO SCH (20:44)
[2018-12-18] MEDS: ACCU-CHEK COMFORT CURVE STRIP VI SCH ×6 (00:17→20:36)
[2018-12-18] MEDS: D5W 5% 1,000 ML IV SCH ×4 (04:22→16:49)
[2018-12-18] MEDS: INSULIN LISPRO (HUMAN) 100 UNITS/ML ML SC SCH ×6 (04:23→20:42)
[2018-12-18] MEDS: Glucerna Carbsteady SHAKE Vanilla 8oz PO SCH ×4 (06:00→21:37)
--- NOTE | 2018-12-18 07:20 | NUR ---
CLOSING NOTE Gave report to day shift RN. Informed RN about patient's status and how Beti came last night and wanted to ensure that [facility] knows that this is for a neuro service not a neuro surgery. Patient is resting in bed at this moment. No s/s of distress noted. Will endorse care over.
--- NOTE | 2018-12-18 07:20 | NUR ---
Opening Shift Note Assumed care of patient, awake and alert but patient is aphasic. No S/S of distress/SOB or pain. Sitter at bedside, will continue to monitor for changes Q1hr and PRN.
--- NOTE | 2018-12-18 09:01 | NUR ---
SPOKE WITH TRANSFER CENTER AT [facility]..THEY ARE STILL TRYING TO GET THEIR PHYSICIAN TO SPEAK WITH DR BRUNSON. THEY WILL KEEP TRYING TO GET PHYSICIANS TO SPEAK.
[2018-12-18 09:19] VITALS: BP 151/80
[2018-12-18] MEDS: ENOXAPARIN SOD 40 MG/0.4 ML SYRINGE SC SCH (10:40)
[2018-12-18] MEDS: INSULIN LANTUS (GLARGINE) 1 /0.01ml (100units/ml) SC SCH (10:41)
[2018-12-18] MEDS: PANTOPRAZOLE 40 MG/10 ML VIAL IV SCH (10:41)
[2018-12-18] MEDS: HYDROcodone-ACET 5/325MG TAB PO PRN (12:14)
[2018-12-18 13:00] VITALS: BP 147/86
--- NOTE | 2018-12-18 14:08 | NUR ---
Dr. Beny Kauffman Spoke with Dr. Clarita Kauffman at [phone]. He said he will see Ms. Ace this evening. Patient's is also informed.
[2018-12-18 14:32] LABS: BUN/Creatinine Ratio 10.2; Calcium 7.8 mg/dL (8.5-10.1); Potassium 4.2 mmol/L (3.5-5.1)
--- NOTE | 2018-12-18 16:23 | NUR ---
Called Dr. Wagner, informed of BMP result of patient. MD gave an order to decrease D5W to 75 ml/hr and to check BMP tomorrow. Order carried out.
[2018-12-18 17:13] VITALS: BP 146/64
--- NOTE | 2018-12-18 18:33 | NUR ---
Spoke with Dr. Buitrago, he said Dr. Kauffman is coming today to see patient. He is going to take over with patient per Dr. Buitrago. Family was also informed. Dr. Buitrago spoke with family also. Per Dr. Buitrago, he spoke personally with Dr. Kauffman.
--- NOTE | 2018-12-18 19:00 | NUR ---
Closing Note Patient is resting in bed, no complaints of pain. Sitter at bedside. Family at bedside too, awaiting for Dr. Clarita aKuffman who is supposed to see the patient tonight. Care endorsed to night RN.
--- NOTE | 2018-12-18 19:15 | NUR ---
Opening Shift Note Assumed care of patient, awake and alert with sitter at bedside. No S/S of distress/SOB or pain. Instructed on POC and to call for assistance PRN, will continue to monitor for changes Q1hr and PRN.
[2018-12-18] MEDS: ATORVASTATIN 20 MG TAB PO SCH (21:37)
[2018-12-18 22:00] VITALS: BP 161/72
--- NOTE | 2018-12-19 00:15 | NUR ---
Insulin held BS of 138, insulin held because patient is refusing to eat any food. Offered her different food selections and patient just shakes her head no. Educated patient on the importance of eating her food and drinking her shakes. Patient still is refusing to eat.
[2018-12-19] MEDS: ACCU-CHEK COMFORT CURVE STRIP VI SCH ×5 (01:08→18:38)
[2018-12-19] MEDS: METOPROLOL TARTRATE 1MG/1ML-5ML VIAL IV PRN (02:11)
[2018-12-19] MEDS: INSULIN LISPRO (HUMAN) 100 UNITS/ML ML SC SCH ×5 (04:19→12:00)
[2018-12-19] MEDS: D5W 5% 1,000 ML IV SCH (04:23)
[2018-12-19] MEDS: Glucerna Carbsteady SHAKE Vanilla 8oz PO SCH ×4 (06:00→22:00)
[2018-12-19 06:03] LABS: Calcium 7.6 mg/dL (8.5-10.1)
[2018-12-19 06:16] VITALS: BP 120/53
--- NOTE | 2018-12-19 07:45 | NUR ---
Opening Shift Note Assumed care of patient, asleep. No S/S of distress/SOB. Sitter at bedside. Will continue to monitor for changes Q1hr and PRN.
--- NOTE | 2018-12-19 08:26 | NUR ---
Contacted Dr. Bang, informed him of patient's potassium level of 3.0.
--- NOTE | 2018-12-19 08:50 | NUR ---
PATIENT VERBALLY RESPONDED BEFORE GIVING MEDICATION. PATIENT STATES "THANK YOU" AND "PROMISE IS A PROMISE".
[2018-12-19 09:15] VITALS: BP 118/56
--- NOTE | 2018-12-19 09:40 | NUR ---
Dr. Beny Kauffman Contacted Dr. Clarita Kauffman at [phone]. left a message re: neuro consult requested by Dr. Buitrago and if he is coming to see the patient today. Nicolás, patient's informed.
[2018-12-19] MEDS ORDERED: POTASSIUM CHL 20 Meq TABLET PO ONE ×2 (09:45→14:00)
[2018-12-19] MEDS: PANTOPRAZOLE 40 MG/10 ML VIAL IV SCH (10:25)
--- NOTE | 2018-12-19 10:40 | NUR ---
Spoke to Dr. Buitrago, asked him if he was able to talk to doctor at [facility] Buitrago states "they gave me the neurosurgeon but he won't take her as she does not need surgery". Dr. Bang informed.
[2018-12-19] MEDS: INSULIN LANTUS (GLARGINE) 1 /0.01ml (100units/ml) SC SCH (11:25)
[2018-12-19] MEDS: ENOXAPARIN SOD 40 MG/0.4 ML SYRINGE SC SCH (11:26)
--- NOTE | 2018-12-19 11:40 | NUR ---
Nicolás Finley at bedside updated regarding POC.
--- NOTE | 2018-12-19 11:45 | NUR ---
Contacted Dr. Bang, patient requesting Tylenol as she gets nauseated with [place].
--- NOTE | 2018-12-19 12:00 | NUR ---
Dr. Sylvester at bedside, explained POC to patient and , Nicolás.
--- NOTE | 2018-12-19 12:05 | NUR ---
WOUND CARE NOTE: Wound care in to see patient for skin integrity monitoring. Patient is resting in bed in Rm. 290A. She's awake but not oriented. Patient appears to be in no pain using Summers Galeano Faces Pain Scale. Patient needs assistance in turning and repositioning. Her current Jl score is 11. She has sitter at bedside for safety. Skin assessment done with the assistance of patient' s nurse, DEIDRA Walker. Patient remain wound free,no pressure injury related issue noted to bony prominences. Repositioned patient for comfort. DEIDRA Walker at bedside. RECOMMENDATION: Continuation of all wound care order by MD, continue with skin/wound preventative plan of care, continue monitoring by wound care while patient is hospitalized.
[2018-12-19 12:38] VITALS: BP 124/59
--- NOTE | 2018-12-19 13:20 | NUR ---
SPOKE TO CHARGE NURSE, KAI. KAI STATES THAT DOCTOR Clarita GUZMAN IS HERE AND HE CALLED AND INFORMED THE .
--- NOTE | 2018-12-19 13:30 | NUR ---
DR. Clarita GUZMAN AT BEDSIDE, EXPLAINED POC TO PATIENT AND . PATIENT IS VERBALLY RESPONSIVE TO DR. GUZMAN.
[2018-12-19] MEDS: ACETAMINOPHEN 500 MG TAB PO PRN ×2 (14:22→22:33)
--- NOTE | 2018-12-19 14:30 | NUR ---
PATIENT WAS TAKEN DOWNSTAIRS FOR CT.
--- NOTE | 2018-12-19 15:31 | NUR ---
Gibran Duke, correctional counselor/case manager re: update regarding patient transfer to [facility].
--- NOTE | 2018-12-19 15:37 | NUR ---
Spoke to Srikanth, continuous pillowcase cutter. Srikanth states so far there is no accepting physician yet. Srikanth further states that she will call [facility] to see where things are.
[2018-12-19] MEDS ORDERED: DEXTROSE (50%) 50ML SYRG IV PRN (16:45)
[2018-12-19 17:00] VITALS: BP 126/68
--- NOTE | 2018-12-19 17:45 | NUR ---
Received call from Dr. Wagner. Informer the latest labs. New order made and carried out.
[2018-12-19] MEDS: InsuLIN REG 1unit/0.01ml Soln (100units/ml) SC SCH (18:00)
[2018-12-19] MEDS: SOD CHL 0.45% 1,000 ML IV SCH (18:37)
--- NOTE | 2018-12-19 19:16 | NUR ---
Closing note Patient resting in bed, no signs of distress noted. Report given to night RN.
--- NOTE | 2018-12-19 22:30 | NUR ---
Dr. Bang at bedside Dr. Bang at bedside with charge nurse Kelly.
[2018-12-19] MEDS: ATORVASTATIN 20 MG TAB PO SCH (22:33)
--- NOTE | 2018-12-19 22:45 | NUR ---
DR. HAYWOOD CALLED PATIENT'S , ASMITA TO UPDATE PATIENT'S CONDITION AND PLAN OF CARE. DR. MELO ORDERED TO TRANSFER PATIENT TO HIGHER LEVEL OF CARE, I PER PATIENT'S REQUEST. DR. HAYWOOD TALKED DR. MARVIN GUZMAN AND APRIL ORDAZO TO INFORM THE PLAN OF CARE AND UPDATE.
[2018-12-20] MEDS: InsuLIN REG 1unit/0.01ml Soln (100units/ml) SC SCH ×4 (00:30→18:57)
[2018-12-20] MEDS: ACCU-CHEK COMFORT CURVE STRIP VI SCH ×4 (00:30→18:23)
--- NOTE | 2018-12-20 00:30 | NUR ---
Insulin held Patient had a blood sugar of 136, insulin held per patients request.
[2018-12-20] MEDS: ONDANSETRON HCL 4 MG/2 ML VIAL IV PRN (04:49)
[2018-12-20] MEDS: Glucerna Carbsteady SHAKE Vanilla 8oz PO SCH ×4 (05:56→22:00)
--- NOTE | 2018-12-20 07:45 | NUR ---
Opening Shift Note Assumed care of patient, awake and alert. No S/S of distress/SOB or pain. Sitter at bedside, will continue to monitor for changes Q1hr and PRN.
--- NOTE | 2018-12-20 07:55 | NUR ---
Assisted patient to chair Assisted patient to chair assisted by 2 person, maximum assist.
[2018-12-20 08:08] LABS: RPR Non Reactive (Non Reactive)
--- NOTE | 2018-12-20 08:55 | NUR ---
Patient was assisted back to bed, maximum assist by 2 person.
[2018-12-20 09:00] VITALS: BP 137/84
--- NOTE | 2018-12-20 09:32 | NUR ---
PHONE CALL TO [facility] TO INQUIRE ABOUT PATIENT TRANSFER. THEY ARE CONTINUING TO TRY TO GET AN ACCEPTING PHYSICIAN. THEY HAVE ALL CLINICALS THAT THEY NEED. ALSO STATED THAT WHEN A PHYSICIAN IS FOUND THEY ARE NOT SURE HOW LONG IT WILL BE BEFORE THEY HAVE A BED AVAILABLE.
[2018-12-20] MEDS: PANTOPRAZOLE 40 MG/10 ML VIAL IV SCH (09:54)
[2018-12-20] MEDS: ENOXAPARIN SOD 40 MG/0.4 ML SYRINGE SC SCH (09:54)
[2018-12-20] MEDS: INSULIN LANTUS (GLARGINE) 1 /0.01ml (100units/ml) SC SCH (10:00)
--- NOTE | 2018-12-20 10:15 | NUR ---
CONTACTED SPEECH THERAPIST. SPOKE TO THALIA, STATES HE WILL CONTACT THE SPEECH THERAPIST.
--- NOTE | 2018-12-20 10:57 | NUR ---
at bedside, updated regarding POC.
[2018-12-20] MEDS: SOD CHL 0.45% 1,000 ML IV SCH (10:59)
--- NOTE | 2018-12-20 13:38 | NUR ---
PATIENT INITIAL REFUSED EVALUATION OF SWALLOW. SUBSTATION OPERATOR RETURNED WITH NURSE AND PATIENT COOPERATED DEMONSTRATING ABILITY TO TOLERATE REGULAR TEXTURE WITH THIN LIQUIDS WITH NO OVERT SIGNS OR SYMPTOMS OF ASPIRATION. PATIENT HAS OWN TEETH.
--- NOTE | 2018-12-20 14:00 | NUR ---
Contacted patient's Nicolás. Updated him re: patient can have regular texture food.
[2018-12-20 14:37] VITALS: BP 157/82
--- NOTE | 2018-12-20 14:42 | NUR ---
Nutrition Follow-up Notes Wt.: 95.3 kg as of yesterday. Pt's awake, refused to speak when attempted to ask her few questions, no immediate family member at bedside except for sitter during rounds this morning. Pt's no signs of distress, however refusing meals, per sitter. Noted pt had swallow eval by ST, to start on Regular diet with Glucerna 1 carton QID. Est. Needs ABW [id number] kcal (23-25 kcal/kgBW), 61-77 gms pro (0.8-1.0 gms/kgBW d/t elev RFT CKD). Will continue to monitor pertinent labs and reassess nutrient need prn Labs: POC Gluc 131 H; 12/19/18 Gluc 191 H Cl 112 H, K 3.0 L, Ca 7.6 L, Cr 11.1 L; Alb 2.5 L. Skin: Jl scale 13, mod risk, pt with redness on groin per RN doc GI: Pt had 1 BM yesterday per dairy farmworker. PES: Altered nutrition related lab values r/t acute/chronic medical condition aeb hyperglycemia, mod hypoalb, elev RFT A1C. Decreased nutrient needs r/t adiposity aeb pt`s high BMI of 32.6 kgm2 Inadequate PO intake r/t current mental condition aeb pt`s refusing to eat with ALOC Will continue to monitor PO intake, skin status, pertinent labs and weight trend. F/u in 3 to 5 days. Rec.: 1.) Consider Consistent Standard Carb: 60 gms/meal, Cardiac: 2 gms Na, Low Chol, Low Fat diet. 2.) If Albumin level continues trending down, consider Prostat 1 pkt BID. 3.) Continue close supervision and feeding assistance prn during meals. 4.) Refer to CDE/RD for further nutrition educ. and weight monitoring upon discharge. 5.) Continue current plan of care.
--- NOTE | 2018-12-20 15:28 | NUR ---
Contacted Dr. Bang re: patient complained of pain on swallowing, white stuff noted on tongue. New order made and carried out.
[2018-12-20 17:17] VITALS: BP 170/85
[2018-12-20] MEDS: ACETAMINOPHEN 500 MG TAB PO PRN ×2 (17:22→23:58)
[2018-12-20] MEDS: METOPROLOL TARTRATE 1MG/1ML-5ML VIAL IV PRN (17:22)
[2018-12-20] MEDS: NYSTATIN (MOUTH-THROAT) 500,000 UNITS/5 ML SUSP MT SCH ×2 (17:23→22:10)
[2018-12-20 17:42] VITALS: BP 157/72
[2018-12-20 18:35] LABS: Basophils # (auto) 0.1 uL; Basophils % (auto) 0.8 % (0.0-2.0); Eosinophils # (auto) 0.3 uL; Eosinophils % (auto) 3.5 % (0.0-7.0); Hematocrit 36.3 % (36.0-46.0); Hemoglobin 11.6 g/dL (12.2-16.2); Lymphocytes # (auto) 1.8 uL; Lymphocytes % (auto) 22.6 % (10.0-50.0); Mean Corpuscular Hemoglobin 28.2 pg (28.0-32.0); Monocytes # (auto) 1.1 uL; Monocytes % (auto) 13.2 % (0.0-12.0); Neutrophils # (auto) 4.8 uL; Neutrophils % (auto) 59.9 % (37.0-80.0); Platelet Count (auto) 179 10^3/uL (140-450); Red Blood Cells 4.12 10^6/uL (4.0-5.20); Red Cell Distribution Width 15.4 % (11.8-14.3); White Blood Cell 7.9 10^3/uL (4.4-10.8)
[2018-12-20 19:18] LABS: Albumin 2.4 g/dL (3.4-5.0); BUN/Creatinine Ratio 8.1; Calcium 7.7 mg/dL (8.5-10.1); Potassium 4.2 mmol/L (3.5-5.1)
[2018-12-20 19:22] LABS: Bilirubin, Total 0.5 mg/dL (0.2-1.0); Total Protein 6.1 g/dL (6.4-8.2)
--- NOTE | 2018-12-20 19:26 | NUR ---
CLOSING NOTE PATIENT RESTING IN BED, NO SIGNS OF DISTRESS NOTED. SITTER AT BEDSIDE.
--- NOTE | 2018-12-20 19:57 | NUR ---
open note assumed care of pt. upon entering room, sitter at bedside. pt awake, no s/s distress noted or expressed. pt updated on plan of care. call light in reach. will continue to monitor.
[2018-12-20 22:00] VITALS: BP 149/82
[2018-12-20] MEDS: ATORVASTATIN 20 MG TAB PO SCH (22:10)
[2018-12-21] MEDS: ACCU-CHEK COMFORT CURVE STRIP VI SCH ×4 (00:17→18:00)
[2018-12-21] MEDS: SOD CHL 0.45% 1,000 ML IV SCH ×2 (03:20→20:19)
[2018-12-21 04:00] VITALS: BP 156/74
[2018-12-21] MEDS: METOPROLOL TARTRATE 1MG/1ML-5ML VIAL IV PRN ×3 (04:53→19:10)
[2018-12-21] MEDS: InsuLIN REG 1unit/0.01ml Soln (100units/ml) SC SCH ×4 (06:00→18:00)
[2018-12-21] MEDS: NYSTATIN (MOUTH-THROAT) 500,000 UNITS/5 ML SUSP MT SCH ×4 (06:14→22:14)
[2018-12-21] MEDS: Glucerna Carbsteady SHAKE Vanilla 8oz PO SCH ×4 (06:20→20:20)
--- NOTE | 2018-12-21 07:22 | NUR ---
Opening Shift Note Assumed care of patient, awake and alert. No S/S of distress/SOB or pain. Sitter at bedside. Will continue to monitor for changes Q1hr and PRN.
[2018-12-21 07:57] LABS: Basophils # (auto) 0.1 uL; Basophils % (auto) 1.2 % (0.0-2.0); Eosinophils # (auto) 0.3 uL; Lymphocytes # (auto) 1.3 uL; Mean Corpuscular Hemoglobin 28.1 pg (28.0-32.0); Mean Corpuscular Hgb Conc. 32.3 g/dL (32.0-36.0); Mean Corpuscular Volume 87.1 fL (80.0-100.0); Monocytes # (auto) 0.6 uL; Monocytes % (auto) 9.4 % (0.0-12.0); Neutrophils # (auto) 4.6 uL; Neutrophils % (auto) 66.4 % (37.0-80.0); Platelet Count (auto) 198 10^3/uL (140-450); Red Blood Cells 4.25 10^6/uL (4.0-5.20); Red Cell Distribution Width 15.2 % (11.8-14.3); White Blood Cell 6.9 10^3/uL (4.4-10.8)
[2018-12-21 08:31] VITALS: BP 165/81
[2018-12-21 08:31] LABS: Albumin 2.3 g/dL (3.4-5.0); Calcium 7.9 mg/dL (8.5-10.1)
[2018-12-21 08:34] LABS: BUN/Creatinine Ratio 8.1; Bilirubin, Total 0.5 mg/dL (0.2-1.0); Total Protein 6.1 g/dL (6.4-8.2)
[2018-12-21] MEDS: ENOXAPARIN SOD 40 MG/0.4 ML SYRINGE SC SCH (09:51)
[2018-12-21] MEDS: PANTOPRAZOLE 40 MG/10 ML VIAL IV SCH (09:55)
[2018-12-21 10:53] LABS: Hepatitis B Surface Antibody Negative
[2018-12-21] MEDS: INSULIN LANTUS (GLARGINE) 1 /0.01ml (100units/ml) SC SCH (11:00)
[2018-12-21 11:22] LABS: Hepatitis A Total Antibody Negative
--- NOTE | 2018-12-21 11:35 | NUR ---
UPDATED CLINICALS FAXED TO [facility]..STILL REQUESTING TRANSFER
--- NOTE | 2018-12-21 12:00 | NUR ---
Nicolás Finley, at bedside, updated regarding POC.
--- NOTE | 2018-12-21 12:10 | NUR ---
Called Nicolás, patient's . Informed him that system development manager is working on patient transfer to [facility].
[2018-12-21 12:47] LABS: Hepatitis B Core Total AB Negative; Hepatitis B Surface Antigen Negative (Negative); Hepatitis C Antibody Negative (Negative)
[2018-12-21 12:50] VITALS: BP 160/69
[2018-12-21] MEDS: ACETAMINOPHEN 500 MG TAB PO PRN ×2 (13:00→21:03)
--- NOTE | 2018-12-21 15:53 | NUR ---
SPOKE WITH TANI AT [facility], HE STATES THAT THEIR HOSPITALIST DR JARAMILLO HAS REFUSED TRANSFER OF PATIENT. DR JARAMILLO STATES HE FEELS THERE IS NOT A NEED TO TRANSFER TO HIGHER LEVEL OF CARE. DR. HAYWOOD HAS BEEN ADVISED.
--- NOTE | 2018-12-21 16:26 | NUR ---
Charge nurse, Marianna called Doctor Bang re: patient not being accepted for transfer by [facility]. Marianna states that Dr. Bang states "Call Dr. Clarita Kauffman".
--- NOTE | 2018-12-21 16:31 | NUR ---
Called patient's , Nicolás. Updated him re: clinical case manager contacted [facility] and hospitalist from [facility] did not accept the patient as he feels that there is no need to transfer the patient. Nicolás states "alright".
--- NOTE | 2018-12-21 16:35 | NUR ---
Called Dr. Clarita Kauffman, informed him that patient was not accepted by [facility] [place]. Dr. Clarita Kauffman made new orders.
--- NOTE | 2018-12-21 16:49 | NUR ---
Called lab re: how to order CSF cytology and CSF LDH. Staff states that she will send me paper form for CSF cytology request and she will call me back for CSF LDH request.
--- NOTE | 2018-12-21 16:53 | NUR ---
Called Nicolás, patient's , updated him re: Dr. Kauffman has been informed that patient was not accepted at [facility] and that Dr. Kauffman ordered lumbar puncture and cerebrospinal fluid analysis. Nicolás states "Thank you".
[2018-12-21 17:00] VITALS: BP 164/92
--- NOTE | 2018-12-21 17:06 | NUR ---
Received a call from radiology. Spoke to Chase, informing that lumbar puncture will be done tomorrow.
--- NOTE | 2018-12-21 17:09 | NUR ---
CSF FOR CYTOLOGY REQUEST ATTACHED TO CHART.
[2018-12-21 21:30] VITALS: BP 151/65
--- NOTE | 2018-12-21 21:35 | NUR ---
DR.MILANI FLORES AT BEDSIDE TO SEE PATIENT, NO NEW ORDERS RECEIVED.
[2018-12-21] MEDS: ATORVASTATIN 20 MG TAB PO SCH (22:14)
[2018-12-22] MEDS: ACCU-CHEK COMFORT CURVE STRIP VI SCH ×4 (00:46→18:10)
[2018-12-22] MEDS: InsuLIN REG 1unit/0.01ml Soln (100units/ml) SC SCH ×4 (00:46→18:00)
[2018-12-22] MEDS: ACETAMINOPHEN 500 MG TAB PO PRN ×3 (05:07→18:30)
[2018-12-22 05:33] VITALS: BP 134/61
[2018-12-22] MEDS: Glucerna Carbsteady SHAKE Vanilla 8oz PO SCH ×4 (06:00→21:10)
[2018-12-22] MEDS: NYSTATIN (MOUTH-THROAT) 500,000 UNITS/5 ML SUSP MT SCH ×4 (06:20→22:26)
[2018-12-22] MEDS ORDERED: LIDOCAINE 2% (LOCAL ANESTH.) PF 5ml SDV ONE (06:27)
--- NOTE | 2018-12-22 06:30 | NUR ---
CALL FROM RADIOLOGY KEEP PATIENT NPO FROM THIS POINT UNTIL PROCEDURE(LUMBAR PUNCTURE). ESTIMATED TO BE COMPLETED BEFORE LUNCH. WILL ENDORSE TO DAY SHIFT RN.
[2018-12-22 06:51] LABS: Albumin 2.7 g/dL (3.4-5.0); BUN/Creatinine Ratio 10.4; Calcium 8.1 mg/dL (8.5-10.1); Potassium 3.7 mmol/L (3.5-5.1)
[2018-12-22 06:54] LABS: Bilirubin, Total 0.4 mg/dL (0.2-1.0); Total Protein 6.9 g/dL (6.4-8.2)
[2018-12-22 06:57] LABS: Basophils # (auto) 0 uL; Basophils % (auto) 0.5 % (0.0-2.0); Eosinophils # (auto) 0.2 uL; Hematocrit 37.1 % (36.0-46.0); Hemoglobin 11.9 g/dL (12.2-16.2); Lymphocytes # (auto) 1.5 uL; Lymphocytes % (auto) 17.4 % (10.0-50.0); Mean Corpuscular Hemoglobin 28.1 pg (28.0-32.0); Mean Corpuscular Hgb Conc. 32.1 g/dL (32.0-36.0); Mean Corpuscular Volume 87.6 fL (80.0-100.0); Monocytes # (auto) 1.1 uL; Monocytes % (auto) 12.7 % (0.0-12.0); Neutrophils # (auto) 5.9 uL; Neutrophils % (auto) 67.4 % (37.0-80.0); Platelet Count (auto) 226 10^3/uL (140-450); Red Blood Cells 4.23 10^6/uL (4.0-5.20); Red Cell Distribution Width 15.7 % (11.8-14.3); White Blood Cell 8.8 10^3/uL (4.4-10.8)
--- NOTE | 2018-12-22 07:35 | NUR ---
Opening Shift Note Assumed care of patient, awake and alert X2, Name and place. No S/S of distress/SOB or pain noted at this time, pt calm. Instructed on POC and to call for assist PRN, pt verbalized understanding, sitter at bedside for safety, bates patent and draining via gravity, urine yellow, IV patent to right wrist, site benign, will continue to monitor for changes Q1hr and PRN.
[2018-12-22 08:00] VITALS: BP 180/72
[2018-12-22 08:06] LABS: Immunoglobulin G, Serum 861 mg/dL (700-1600)
[2018-12-22 09:00] VITALS: BP 118/69
--- NOTE | 2018-12-22 09:25 | NUR ---
PT OFF UNIT/RADIOLOGY PT TAKEN TO RADIOLOGY FOR PLANNED LUMBAR PUNCTURE, PT TAKEN VIA BED, IV PATENT TO RIGHT WRIST 20G, FAMILY AWARE PF PROCEDURE, NO DISTRESS NOTED AT THIS TIME, PT CALM, CONT CARE
[2018-12-22] MEDS: INSULIN LANTUS (GLARGINE) 1 /0.01ml (100units/ml) SC SCH (10:00)
--- NOTE | 2018-12-22 10:05 | NUR ---
PT BACK FROM RADIOLOGY S/P LUMBAR PUNCTURE, PATIENT IS TO REMAIN FLAT FOR 4-6 HRS, PT ALERT TO NAME AND PLACE, PATIENT INSTRUCTED TO AVOID SITTING UP OR TURNING TO AVOID FARAH, PT UNABLE TO VERBALIZE UNDERSTANDING AT THIS TIME, BACK ASSESSED, BAND-AID CDI, NO BLEEDING OR SWELLING NOTED, SITTER AT BEDSIDE FOR SAFETY AT THIS TIME, CONT CARE
[2018-12-22] MEDS: PANTOPRAZOLE 40 MG/10 ML VIAL IV SCH (10:50)
[2018-12-22 11:37] LABS: Protein, CSF 61.2 mg/dL (15-45)
[2018-12-22] MEDS: METOPROLOL TARTRATE 1MG/1ML-5ML VIAL IV PRN (11:52)
[2018-12-22] MEDS: ONDANSETRON HCL 4 MG/2 ML VIAL IV PRN (11:53)
--- NOTE | 2018-12-22 11:55 | NUR ---
HTN BP 180/72, P 97, PT CURRENTLY C/O FARAH, PT MEDICATED WITH TYLENOL @ 1051, PT MEDICATED WITH METOPROLOL 5MG IV, CONT CARE
[2018-12-22 12:39] LABS: CSF White Blood Cells 1 CUMM (0-5)
[2018-12-22] MEDS: SOD CHL 0.45% 1,000 ML IV SCH (12:40)
--- NOTE | 2018-12-22 12:45 | NUR ---
AT BESIDE FAMILY EDUCATED THAT PATIENT SHOULD REMAIN FLAT S/OP LUMBAR PUNCTURE, PT IS CURRENTLY RESTLESS AND TURNING ON HER SIDE, RIGHT AND LEFT, PT RE-ORIENTED AND INSTRUCTED TO REMAIN FLAT, FAMILY VERBALIZED UNDERSTANDING, SITTER AT BEDSIDE FOR SAFETY, CONT CARE
[2018-12-22 13:00] VITALS: BP 107/56
--- NOTE | 2018-12-22 14:50 | NUR ---
BP RE-ASSESS POST METOPROLOL ADMINISTRATION BP 158/76,P 72, PT CURRENTLY CALM, NO DISTRESS NOTED, AT BEDSIDE, CONT CARE
--- NOTE | 2018-12-22 14:50 | NUR ---
WAIST PLEATER CLINT MCNALLY AT BEDSIDE DISCUSSING POC WITH PT AND , CONT CARE
--- NOTE | 2018-12-22 15:17 | NUR ---
SPOKE WITH PATIENT'S ASMITA AT BEDSIDE. REMAINS CONCERNED ABOUT THE PATIENT'S CONDITION. EXPLAINED TO ASMITA THAT [facility] DECLINED TRANSFER. ALSO EXPLAINED THAT DR Clarita GUZMAN HAS ORDERED TESTS AND WE ARE AWAITING RESULTS FROM THOSE TEST. HE AGREED TO WAIT ANOTHER COUPLE OF DAYS FOR THOSE RESULTS BEFORE PERUSING TRANSFER TO ANOTHER HOSPITAL.
--- NOTE | 2018-12-22 17:55 | NUR ---
NEUROLOGY PAGED DR Andres GUZMAN PAGED, DR HAYWOOD WAS NOTIFIED THAT PATIENT IS C/O FARAH NOT RELIVED BY TYLENOL S/P LUMBAR PUNCTURE, DR HAYWOOD REQUESTED THAT NEUROLOGY SHOULD BE PAGED, CONT CARE
[2018-12-22 18:00] VITALS: BP 111/62
--- NOTE | 2018-12-22 21:03 | NUR ---
DR. CLAYTON RECEIVED PHONE CALL FROM DR. Andres GUZMAN. UPDATED ON PATIENTS COMPLAINT OF HEADACHES S/P LUMBAR PUNCTURE TODAY. UPDATED ON CSF FINDINGS, HEP PANEL RESULT. NEW ORDERS RECEIVED FOR 0.2MG DILAUDID IV X1 DOSE, READ BACK AND VERIFIED. STATES HE WILL SPEAK WITH DR. HAYWOOD TOMORROW REGARDING THIS PATIENT AND POC.
[2018-12-22] MEDS ORDERED: HYDROmorphone HCL 2 MG/ML VL IV ONE (21:15)
[2018-12-22 21:59] VITALS: BP 136/77
--- NOTE | 2018-12-22 22:25 | NUR ---
FULL LINEN CHANGE PATIENT CLEANED AND FULL LINEN CHANGE PROVIDED TO PATIENT. PATIENT SKIN IS CLEAR OF WOUNDS. PATIENT IS TURNING IN BED INDEPENDENTLY. IV TO RIGHT WRIST INFUSING 0.45%NS @60ML/HR. BANDAID TO BACK WITH NO DRAINAGE NOTED, S/P LUMBAR PUNCTURE TODAY.
[2018-12-22] MEDS: PROPRANOLOL HCL 20 MG TAB PO SCH (22:27)
[2018-12-22] MEDS: ATORVASTATIN 20 MG TAB PO SCH (22:27)
[2018-12-23 04:52] LABS: Albumin 2.5 g/dL (3.4-5.0); Calcium 8.6 mg/dL (8.5-10.1); Potassium 4.2 mmol/L (3.5-5.1)
[2018-12-23 04:55] LABS: BUN/Creatinine Ratio 8.1; Bilirubin, Total 0.3 mg/dL (0.2-1.0); Total Protein 6.4 g/dL (6.4-8.2)
[2018-12-23 05:00] VITALS: BP 147/91
[2018-12-23 05:00] LABS: Basophils # (auto) 0.1 uL; Basophils % (auto) 0.9 % (0.0-2.0); Eosinophils # (auto) 0.3 uL; Eosinophils % (auto) 3.5 % (0.0-7.0); Hemoglobin 12.2 g/dL (12.2-16.2); Lymphocytes # (auto) 1.6 uL; Lymphocytes % (auto) 20.4 % (10.0-50.0); Mean Corpuscular Hemoglobin 28.3 pg (28.0-32.0); Mean Corpuscular Hgb Conc. 32.1 g/dL (32.0-36.0); Mean Corpuscular Volume 88.2 fL (80.0-100.0); Monocytes # (auto) 1.2 uL; Monocytes % (auto) 15.3 % (0.0-12.0); Neutrophils # (auto) 4.6 uL; Neutrophils % (auto) 59.9 % (37.0-80.0); Platelet Count (auto) 233 10^3/uL (140-450); Red Blood Cells 4.31 10^6/uL (4.0-5.20); Red Cell Distribution Width 15.3 % (11.8-14.3); White Blood Cell 7.7 10^3/uL (4.4-10.8)
[2018-12-23] MEDS: SOD CHL 0.45% 1,000 ML IV SCH ×2 (05:20→21:51)
[2018-12-23] MEDS: Glucerna Carbsteady SHAKE Vanilla 8oz PO SCH ×4 (05:43→21:58)
[2018-12-23] MEDS: InsuLIN REG 1unit/0.01ml Soln (100units/ml) SC SCH ×4 (06:00→18:00)
[2018-12-23] MEDS: ACCU-CHEK COMFORT CURVE STRIP VI SCH ×4 (06:59→18:00)
[2018-12-23] MEDS: NYSTATIN (MOUTH-THROAT) 500,000 UNITS/5 ML SUSP MT SCH ×4 (07:00→21:53)
--- NOTE | 2018-12-23 07:55 | NUR ---
Opening Shift Note Assumed care of patient, currently sleeping, easily awakens via verbal and tactile stimuli. No S/S of distress/SOB or pain noted at this time. Sitter at beside, for safety, Currently on room air. Instructed on POC and to call for assist PRN, bed alarm activated and call light within reach, bates patent and draining via gravity. will continue to monitor for changes Q1hr and PRN.
--- NOTE | 2018-12-23 08:05 | NUR ---
IV removal/Site noted red and temder right hand below site was noted to bed swollen, site red and tender to touch, IV DC'd with clean sterile technique, catheter fully intact. site irrigated with NS and padded with sterile gauze, pressure dressing applied to site, ice pack applied and right arm elevated, Dr Bang was informed, no new orders received, Patient tolerated well.
[2018-12-23 09:00] VITALS: BP 146/80
--- NOTE | 2018-12-23 10:10 | NUR ---
FAMILY AT BEDSIDE AT BESIDE, CONT CARE
[2018-12-23] MEDS: PANTOPRAZOLE 40 MG/10 ML VIAL IV SCH (10:26)
[2018-12-23] MEDS: PROPRANOLOL HCL 20 MG TAB PO SCH ×2 (10:27→21:53)
[2018-12-23] MEDS: INSULIN LANTUS (GLARGINE) 1 /0.01ml (100units/ml) SC SCH (10:31)
[2018-12-23] MEDS: ACETAMINOPHEN 500 MG TAB PO PRN ×2 (11:35→21:33)
--- NOTE | 2018-12-23 12:16 | NUR ---
Nutrition Follow-up Notes Wt.: 92.3 kg Pt's sleeping with no family by bedside. per records pt s/p lumbar puncture. Pt's no signs of distress, however refusing meals, per sitter. pt is currently on pureed diet with Glucerna 1 carton tid with inadequate PO of < 50% x 6 per RN DOC Est. Needs ABW [id number] kcal (23-25 kcal/kgBW), 61-77 gms pro (0.8-1.0 gms/kgBW d/t elev RFT CKD). Will continue to monitor pertinent labs and reassess nutrient need prn Labs: CREAT 1.24 H, ALB 2.5 L. Skin: Jl scale 15, mod risk, pt with redness on groin per RN doc GI: Pt had 1 BM yesterday per shank stitcher. PES: Altered nutrition related lab values r/t acute/chronic medical condition aeb hyperglycemia, mod hypoalb, elev RFT A1C. Decreased nutrient needs r/t adiposity aeb pt`s high BMI of 32.6 kgm2 Inadequate PO intake r/t current mental condition aeb pt`s refusing to eat with ALOC Will continue to monitor PO intake, skin status, pertinent labs and weight trend. F/u in 3 to 5 days. Rec.: 1.) Consider Consistent Standard Carb: 60 gms/meal, Cardiac: 2 gms Na, Low Chol, Low Fat diet. 2.) If Albumin level continues trending down, consider Prostat 1 pkt BID. 3.) Continue close supervision and feeding assistance prn during meals. 4.) Refer to CDE/RD for further nutrition educ. and weight monitoring upon discharge. 5.) Continue current plan of care.
--- NOTE | 2018-12-23 12:30 | NUR ---
SCD APPLIED TO BLE ORDER OBTAINED FOR SCD FOR DVT PROPHYLAXIS, PT EDUCATED ON REASON FOR SCD, PT NODDED TO AGREE, SITTER AT BEDSIDE FOR SAFETY, CONT CARE
[2018-12-23 13:00] VITALS: BP 135/90
[2018-12-23 17:00] VITALS: BP 117/88
--- NOTE | 2018-12-23 17:18 | NUR ---
MD DR HAYWOOD AT BEDSIDE, NOT CURRENTLY AT BEDSIDE TO DISCUSS POC, MD ASSESSED RIGHT WRIST, NO NEW ORDERS, SITE PINK, AND RIGHT HAND SWELLING HAS DECREASED, CONT TO ELEVATE RIGHT HAND, CONT CARE
--- NOTE | 2018-12-23 17:30 | NUR ---
IV insertion IV access obtained, via clean sterile technique by inserting 22 gauge catheter at LEFT HAND after 1 attempt. IV secured properly. No trauma to site. Patient tolerated procedure well. Family at bedside, updated on poc, sitter at beside for safety, cont care
--- NOTE | 2018-12-23 17:45 | NUR ---
AT BEDSIDE UPDATED ON POC, HE WAS INFORMED DR HAYWOOD PLANS OR DISCHARGING THE PATIENT IN A COUPLE DAYS, PATIENT CURRENTLY ALERT TO SELF, PLACE AND CAN IDENTIFY , AGREES THAT PATIENT IS DOING MUCH BETTER AT THIS TIME, CONT CARE
--- NOTE | 2018-12-23 19:00 | NUR ---
opening note ASSUMED CARE OF PATIENT. NO S/S OF DISTRESS. PATIENT IS LAYING IN BED. SITTER IS IN ROOM, BED LOCKED AND AT LOWEST POSITION.
[2018-12-23 20:00] VITALS: BP 153/63
[2018-12-23 21:40] VITALS: BP 153/63
[2018-12-23] MEDS: ATORVASTATIN 20 MG TAB PO SCH (21:51)
[2018-12-24] VITALS (7 sets, daily range): BP systolic 158–166; BP diastolic 67–85
[2018-12-24] MEDS: ACCU-CHEK COMFORT CURVE STRIP VI SCH ×5 (00:23→23:55)
[2018-12-24] MEDS: InsuLIN REG 1unit/0.01ml Soln (100units/ml) SC SCH ×5 (00:24→23:55)
[2018-12-24] MEDS: ACETAMINOPHEN 500 MG TAB PO PRN ×2 (03:43→09:49)
[2018-12-24 06:28] LABS: Basophils # (auto) 0.1 uL; Basophils % (auto) 0.9 % (0.0-2.0); Eosinophils # (auto) 0.2 uL; Eosinophils % (auto) 3.2 % (0.0-7.0); Hematocrit 37.3 % (36.0-46.0); Hemoglobin 12.1 g/dL (12.2-16.2); Lymphocytes # (auto) 1.6 uL; Lymphocytes % (auto) 23.7 % (10.0-50.0); Mean Corpuscular Hgb Conc. 32.5 g/dL (32.0-36.0); Mean Corpuscular Volume 86.3 fL (80.0-100.0); Monocytes # (auto) 0.7 uL; Monocytes % (auto) 11.1 % (0.0-12.0); Neutrophils # (auto) 4.1 uL; Neutrophils % (auto) 61.1 % (37.0-80.0); Nucleated Red Blood Cells % 0.1 %; Platelet Count (auto) 241 10^3/uL (140-450); Red Blood Cells 4.32 10^6/uL (4.0-5.20); Red Cell Distribution Width 15.6 % (11.8-14.3); White Blood Cell 6.7 10^3/uL (4.4-10.8)
[2018-12-24] MEDS: NYSTATIN (MOUTH-THROAT) 500,000 UNITS/5 ML SUSP MT SCH ×4 (06:32→22:23)
[2018-12-24] MEDS: Glucerna Carbsteady SHAKE Vanilla 8oz PO SCH ×4 (06:34→22:23)
[2018-12-24 06:55] LABS: Albumin 2.5 g/dL (3.4-5.0); Calcium 8.3 mg/dL (8.5-10.1); Potassium 3.4 mmol/L (3.5-5.1)
[2018-12-24 06:59] LABS: BUN/Creatinine Ratio 5.5; Bilirubin, Total 0.4 mg/dL (0.2-1.0); Total Protein 6.1 g/dL (6.4-8.2)
--- NOTE | 2018-12-24 07:32 | NUR ---
Opening Shift Note Assumed care of patient, currently sleeping, easily awakens via verbal and tactile stimuli. Patient currently [id number], name, , place, and situation, No S/S of distress/SOB or pain noted at this time. Sitter at beside, for safety, Currently on room air. Instructed on POC and to call for assist PRN, bed alarm activated and call light within reach, bates patent and draining via gravity. will continue to monitor for changes Q1hr and PRN.
[2018-12-24] MEDS: PANTOPRAZOLE 40 MG/10 ML VIAL IV SCH (09:36)
[2018-12-24] MEDS: PROPRANOLOL HCL 20 MG TAB PO SCH ×2 (09:37→22:23)
[2018-12-24] MEDS: INSULIN LANTUS (GLARGINE) 1 /0.01ml (100units/ml) SC SCH (09:40)
[2018-12-24] MEDS: SOD CHL 0.45% 1,000 ML IV SCH (14:40)
--- NOTE | 2018-12-24 16:41 | NUR ---
PHYSICAL THERAPY PAGED
--- NOTE | 2018-12-24 17:18 | NUR ---
PT REFUSED PHYSICAL THERAPY
--- NOTE | 2018-12-24 18:55 | NUR ---
FAMILY AT BEDSIDE PT'S BROTHER AND OTHER FAMILY AT BEDSIDE, PT ABLE TO RECOGNIZE FAMILY MEMBERS, AND ENGAGE IN CONVERSATION, CONT CARE
[2018-12-24] MEDS: ATORVASTATIN 20 MG TAB PO SCH (22:22)
[2018-12-25] VITALS (9 sets, daily range): BP systolic 113–160; BP diastolic 64–94
--- NOTE | 2018-12-25 00:55 | NUR ---
MD AT BEDSIDE DR HAYWOOD AT BEDSIDE, MD DISCUSSING POC WITH PATIENT, INCLUDING DISCHARGE PLANNING, PT ABLE TO VERBALIZE UNDERSTANDING, PER DR HAYWOOD HE WILL ARRANGE HOME HEALTH, [facility]
--- NOTE | 2018-12-25 03:55 | NUR ---
Opening Shift Note Assumed care of patient, awake and alert. No S/S of distress/SOB or pain. Instructed on POC and to call for assist PRN, will continue to monitor for changes Q1hr and PRN. SITTER AT BEDSIDE.
--- NOTE | 2018-12-25 03:55 | NUR ---
PT CARE ENDORSED TO YURI GAY PT CURRENTLY SLEEPING, NO DISTRESS NOTED
[2018-12-25 05:57] LABS: Basophils # (auto) 0.1 uL; Basophils % (auto) 1.2 % (0.0-2.0); Eosinophils # (auto) 0.2 uL; Eosinophils % (auto) 3.3 % (0.0-7.0); Hematocrit 39.7 % (36.0-46.0); Hemoglobin 12.8 g/dL (12.2-16.2); Lymphocytes # (auto) 1.6 uL; Lymphocytes % (auto) 24.9 % (10.0-50.0); Mean Corpuscular Hemoglobin 27.7 pg (28.0-32.0); Mean Corpuscular Hgb Conc. 32.3 g/dL (32.0-36.0); Mean Corpuscular Volume 85.6 fL (80.0-100.0); Monocytes # (auto) 0.7 uL; Monocytes % (auto) 10.6 % (0.0-12.0); Nucleated Red Blood Cells % 0.1 %; Platelet Count (auto) 267 10^3/uL (140-450); Red Blood Cells 4.64 10^6/uL (4.0-5.20); Red Cell Distribution Width 15.4 % (11.8-14.3); White Blood Cell 6.6 10^3/uL (4.4-10.8)
[2018-12-25] MEDS: InsuLIN REG 1unit/0.01ml Soln (100units/ml) SC SCH ×4 (06:00→23:50)
[2018-12-25] MEDS: NYSTATIN (MOUTH-THROAT) 500,000 UNITS/5 ML SUSP MT SCH ×4 (06:01→22:55)
[2018-12-25] MEDS: ACCU-CHEK COMFORT CURVE STRIP VI SCH ×4 (06:01→23:55)
[2018-12-25] MEDS: Glucerna Carbsteady SHAKE Vanilla 8oz PO SCH ×4 (06:01→22:56)
[2018-12-25 06:13] LABS: Albumin 2.2 g/dL (3.4-5.0); Calcium 7.9 mg/dL (8.5-10.1); Potassium 3.6 mmol/L (3.5-5.1)
[2018-12-25 06:15] LABS: BUN/Creatinine Ratio 6.5
[2018-12-25 06:18] LABS: Bilirubin, Total 0.3 mg/dL (0.2-1.0); Total Protein 6.1 g/dL (6.4-8.2)
[2018-12-25] MEDS: PANTOPRAZOLE 40 MG/10 ML VIAL IV SCH (09:37)
[2018-12-25] MEDS: FUROSEMIDE 40 MG TAB PO SCH (09:38)
[2018-12-25] MEDS: PROPRANOLOL HCL 20 MG TAB PO SCH ×2 (09:38→22:56)
[2018-12-25] MEDS: INSULIN LANTUS (GLARGINE) 1 /0.01ml (100units/ml) SC SCH (09:39)
--- NOTE | 2018-12-25 15:06 | NUR ---
FAMILY AT BEDSIDE AND REQUESTING EDWINA AND CHARGE NURSE.
--- NOTE | 2018-12-25 15:10 | NUR ---
ED[employer] OFFICER SPEAKING TO PATIENT WELL TANI CHARGE NURSE.
--- NOTE | 2018-12-25 15:22 | NUR ---
NOTIFIED Andres GUZMAN THAT FAMILY WOULD LIKE TO SPEAK WITH HIM IN REGARDS TO PATIENTS TESTS.
--- NOTE | 2018-12-25 15:57 | NUR ---
assessment Patient is a 58 year old female who is alert and oriented today. Prior to admission patient lived home with family and functioned independently. Patient informed me she is able to care for her own ADLs. Per patient she will return home to her prior living arrangements post discharge and family will transport her home. Patient informed me she has a fww, scooter and a wheelchair for home use. Patients PCP is Dr Holden. Patients Nicolás is at bedside and very upset about Dr Bang not contacting him. and Dr Bang keep missing each other at bedside. Patient had a PT eval this afternoon and patient walked all over [facility]. Patient to be discharged within the next day or two per Dr Bang. I informed patient she has a right to speak to a forensic social worker regarding all care. I informed patient she has a right to participate in any and all discharge planning. Patient is aware of visiting hours on the hospital floor. I informed patient she has a right to privacy. Patient does not have a POA and advanced directive. I have offered patient information on POA and advanced directives. I informed the patient the advantages and benefits of having an Advanced Directive. Patient verbalized understanding and agreed to discharge plan. Addendum: 12/25/18 at 1601 by Belle AG Amended: Links added.
--- NOTE | 2018-12-25 20:40 | NUR ---
SEIZURE/HYPOGLYCEMIA PATIENT BECOME UNRESPONSIVE AND WAS DROOLING, NURSE AID ALERTED CODE BLUE. CAME TO BEDSIDE PATIENT UNRESPONSIVE TO NAME CALLING OR STERNAL RUB, EYE OPEN BUT NOT TRACKING PATIENT HAS RESPIRATIONS AND FOAMING OF MOUTH AND RIGID/STIFF. PLACED PATIENT TO HER RIGHT SIDE. PATIENT BS-35. ADMINISTERED 1 AMPULE D50 AND ATIVAN 1MG IV AT 2030. PATIENT TOLERATED WELL AND BECOME MORE ALERT MOVING AROUND IN BED IS RESTLESS.
--- NOTE | 2018-12-25 20:44 | NUR ---
DR HAYWOOD CONTACTED INFORMED DR HAYWOOD PATIENT HAD SEIZURE THIS PM AND IS NOT ON ANY ANTISEIZURE MEDICATION BUT HAS HISTORY. RECEIVED ORDER TO CONTACT NEUROLOGIST, OK TO DISCHARGE PATIENT IF CLEARED BY NEUROLOGIST. LIZBETH
--- NOTE | 2018-12-25 20:45 | NUR ---
DR BRUNSON NEURO CONTACTED DR BRUNSON INFORMED HIM HE HAS SEEN PATIENT ON THIS ADMISSION FOR METABOLIC ENCEPHALOPATHY, SHE HAD SEIZURE THIS EVENING GIVEN ATIVAN AND IS MORE ALERT, AND HAS HISTORY OF SEIZURES BUT NOT ON ANY ANTI SEIZURE MEDICATIONS. INFORMED ME TO CONTINUE ATIVAN PRN FOR SEIZURE AND WILL SEE PATIENT IN AM.
[2018-12-25] MEDS: HALOPERIDOL LACTATE 5 MG/ML INJ VIAL IM PRN (21:01)
--- NOTE | 2018-12-25 22:31 | NUR ---
NEURO DR BRUNSON HERE TO SEE PATIENT INFORMED ME THAT PATIENT WAS TRANSFERRED TO DR MARVIN GUZMAN FOR NEURO. ATTEMPTED TO CALL DR MARVIN GUZMAN [phone] NO ANSWERING SERVICE OR VOICEMAIL AVAILABLE. CHARGE NURSE NOTIFIED WILL CALL IN AM.
[2018-12-25] MEDS: ATORVASTATIN 20 MG TAB PO SCH (22:55)
[2018-12-26] MEDS: ACETAMINOPHEN 500 MG TAB PO PRN (02:02)
[2018-12-26 05:00] VITALS: BP 113/63
[2018-12-26 05:03] VITALS: BP 149/73
[2018-12-26] MEDS: InsuLIN REG 1unit/0.01ml Soln (100units/ml) SC SCH ×2 (05:31→12:00)
[2018-12-26] MEDS: ACCU-CHEK COMFORT CURVE STRIP VI SCH ×2 (05:31→12:00)
[2018-12-26] MEDS: Glucerna Carbsteady SHAKE Vanilla 8oz PO SCH ×2 (06:05→12:00)
[2018-12-26] MEDS: NYSTATIN (MOUTH-THROAT) 500,000 UNITS/5 ML SUSP MT SCH ×2 (06:05→12:00)
--- NOTE | 2018-12-26 06:41 | NUR ---
NEURO DR GUZMAN LEFT MESSAGE REGARDING PATIENT RECENT SEIZURE EPISODE AND INFORMED HIM REGARDING DR HAYWOOD PLAN TO DISCHARGE PATIENT ON HOME HEALTH UPON HIS NEUROLOGY CLEARANCE. AWAITING CALL BACK.
[2018-12-26 07:07] LABS: Basophils # (auto) 0.1 uL; Eosinophils # (auto) 0.2 uL; Eosinophils % (auto) 2.2 % (0.0-7.0); Hematocrit 39.4 % (36.0-46.0); Hemoglobin 12.6 g/dL (12.2-16.2); Lymphocytes # (auto) 1.9 uL; Lymphocytes % (auto) 23.5 % (10.0-50.0); Mean Corpuscular Hemoglobin 27.7 pg (28.0-32.0); Mean Corpuscular Hgb Conc. 32.1 g/dL (32.0-36.0); Mean Corpuscular Volume 86.3 fL (80.0-100.0); Monocytes # (auto) 0.7 uL; Neutrophils # (auto) 5.1 uL; Neutrophils % (auto) 64.3 % (37.0-80.0); Nucleated Red Blood Cells % 0.1 %; Platelet Count (auto) 273 10^3/uL (140-450); Red Blood Cells 4.56 10^6/uL (4.0-5.20); Red Cell Distribution Width 15.3 % (11.8-14.3); White Blood Cell 7.9 10^3/uL (4.4-10.8)
[2018-12-26 07:23] LABS: Albumin 2.3 g/dL (3.4-5.0); Potassium 3.6 mmol/L (3.5-5.1)
[2018-12-26 07:26] LABS: BUN/Creatinine Ratio 6.8; Bilirubin, Total 0.3 mg/dL (0.2-1.0); Total Protein 6.1 g/dL (6.4-8.2)
[2018-12-26 08:35] VITALS: BP 160/75
--- NOTE | 2018-12-26 08:38 | NUR ---
CALLED IAN AND INFORMED HIM OF THE SEIZURE PATIENT HAD LAST NIGHT AND THAT SHE WILL NOT BE DISCHARGED UNTIL SHE IS CLEARED BY A NEUROLOGIST.
[2018-12-26] MEDS: PANTOPRAZOLE 40 MG/10 ML VIAL IV SCH (09:30)
[2018-12-26] MEDS: FUROSEMIDE 40 MG TAB PO SCH (09:30)
[2018-12-26] MEDS: PROPRANOLOL HCL 20 MG TAB PO SCH (09:31)
[2018-12-26] MEDS: INSULIN LANTUS (GLARGINE) 1 /0.01ml (100units/ml) SC SCH (09:34)
--- NOTE | 2018-12-26 10:21 | NUR ---
DR. HAYWOOD ON PHONE WITH DISCUSSING THE PLAN OF CARE FOR PATIENT TO BE DISCHARGED HOME TODAY. DR. HAYWOOD ALSO SPOKE WITH Clarita GUZMAN NEUROLOGIST WHO HAS CLEARED PATIENT FOR DISCHARGE. FAMILY AWARE AND IN AGREEMENT WITH THE PLAN. HOME HEALTH WITH [facility] TO START Friday12/27/18
--- NOTE | 2018-12-26 10:25 | NUR ---
SCHEDULED APPOINTMENT FOR [address] Andres GUZMAN FOR FridayDecember WHILE HE WAS SPEAKING TO DR. Clarita GUZMAN
--- NOTE | 2018-12-26 10:35 | NUR ---
Bates catheter dc'd Order to discontinue bates catheter. Bates dc'd with clean technique following deflation of balloon. Patient tolerated well with no complaints of pain. Continue care.
--- NOTE | 2018-12-26 10:45 | NUR ---
NOTIFIED SUE IRWIN THAT PATIENT WAS DISCHARGED THEY WILL CALL TO SCHEDULE APPOINTMENT FOR Friday12/27/18
[2018-12-26 11:16] VITALS: BP 148/76
[2018-12-26 13:00] VITALS: BP 135/54
--- NOTE | 2018-12-26 13:34 | NUR ---
Discharge instructions given as ordered. Encourage to follow up with PMD as instructed. All questions and concerns addressed. Patient verbalized understanding. Medication reconciliation form completed and copy given to patient. IV removed with catheter intact, pressure dressing applied, bates catheter removed patient has voided urine. Telemetry unit returned to ICU. Patient taken to vehicle via wheelchair with all personal belongings, accompanied by staff and family member. No distress noted at time of departure. discharge vital 135/54 bp, 16 RR, 98% 02 sats and heart rate of 70
== END 2018-12-26 13:34 | disposition home health service (06) | DRG 682 ==
LOC: ER 13:59 → EDBD 13:59 → TELE 22:03 → TELE-EAST 12-10 08:29 → TELE-WESTW 12-11 16:19
PROVIDERS: ADMIT Psychiatry & Neurology Psychiatry; ATTEND Internal Medicine
PROC: 009U3ZX Drainage of Spinal Canal, Percutaneous Approach, Diagnostic (ICD-10-PCS; principal; 2018-12-22)
PROC: B01B1ZZ Fluoroscopy of Spinal Cord using Low Osmolar Contrast (ICD-10-PCS; 2018-12-22)
DX: N17.0 Acute kidney failure with tubular necrosis (principal); G93.41 Metabolic encephalopathy; I50.22 Chronic systolic (congestive) heart failure; E87.0 Hyperosmolality and hypernatremia; I13.0 Hypertensive heart and chronic kidney disease with heart failure and stage 1 through stage 4 chronic kidney disease, or unspecified chronic kidney disease; M31.0 Hypersensitivity angiitis; I16.9 Hypertensive crisis, unspecified; N18.4 Chronic kidney disease, stage 4 (severe); E78.5 Hyperlipidemia, unspecified; J44.9 Chronic obstructive pulmonary disease, unspecified; E11.42 Type 2 diabetes mellitus with diabetic polyneuropathy; E87.6 Hypokalemia; D35.02 Benign neoplasm of left adrenal gland; D64.9 Anemia, unspecified; E11.22 Type 2 diabetes mellitus with diabetic chronic kidney disease; E83.51 Hypocalcemia; F17.200 Nicotine dependence, unspecified, uncomplicated; E66.9 Obesity, unspecified; F41.9 Anxiety disorder, unspecified; H91.90 Unspecified hearing loss, unspecified ear; E11.65 Type 2 diabetes mellitus with hyperglycemia; I77.6 Arteritis, unspecified; K80.20 Calculus of gallbladder without cholecystitis without obstruction; Z85.528 Personal history of other malignant neoplasm of kidney; Z98.84 Bariatric surgery status; Z92.21 Personal history of antineoplastic chemotherapy; Z82.5 Family history of asthma and other chronic lower respiratory diseases; Z86.73 Personal history of transient ischemic attack (TIA), and cerebral infarction without residual deficits; Z79.4 Long term (current) use of insulin; Z88.0 Allergy status to penicillin; Z88.1 Allergy status to other antibiotic agents; Z87.81 Personal history of (healed) traumatic fracture; Z74.01 Bed confinement status; Z82.49 Family history of ischemic heart disease and other diseases of the circulatory system
CPT/HCPCS: 36415; 51702; 62272; 70450; 71045; 71250; 74176; 76775; 80048; 80053; 80307; 81001; 82330; 82465; 82570; 82595; 82607; 82746; 82784; 82945; 82962; 83036; 83516; 83520; 83690; 83735; 83970; 84100; 84155; 84156; 84157; 84165; 84300; 84443; 84484; 85025; 85610; 85613; 85652; 85670; 85705; 85730; 85732; 86141; 86147; 86160; 86225; 86235; 86256; 86334; 86592; 86703; 86704; 86706; 86708; 86803; 87070; 87081; 87086; 87205; 87340; 89051; 92610; 93005; 93306; 95819; 96361; 96374; 96375; 97163; C9113; G0378; J1815; J2001; J2405; J3480

== ENCOUNTER 2019-07-13 19:02 | Emergency (ER) | payer MEDICARE ==
[~2019-07-13] VITALS: Ht 170.2 cm; Wt 100.0 kg
[~2019-07-13 19:02] MED LIST changes: -BUME2TAB3 PO; +BUME2TAB5 PO; -SERT-135 PO; +SERT100T PO
[2019-07-13] MEDS ORDERED: EPINEPHrine HCL 1 MG/10 ML SYRG IV ONE ×2 (19:12→20:15)
[2019-07-13] MEDS ORDERED: SODIUM BICARBONATE 8.4% INJ 50ML SYRINGE IV ONE (19:12)
[2019-07-13] MEDS ORDERED: ATROPINE SULF 1 MG/10ml SYR IV ONE ×2 (19:12→20:15)
[2019-07-13] MEDS ORDERED: MIDAZOLAM DRIP 50 mg/50mL 50 ML IV ONE (19:14)
[2019-07-13] MEDS ORDERED: SODIUM CHLORIDE 0.9% 1,000 ML IV ONE (19:15)
[2019-07-13] MEDS ORDERED: MIDAZOLAM DRIP 50 mg/50mL 50 ML IV SCH (19:15)
[2019-07-13 19:39] LABS: Basophils # (auto) 0.2 uL; Eosinophils # (auto) 0 uL; Hemoglobin 10.5 g/dL (12.2-16.2); Nucleated Red Blood Cells % 0.4 %
[2019-07-13 19:40] LABS: Basophils % (auto) 0.5 % (0.0-2.0); Hematocrit 36.4 % (36.0-46.0); Lymphocytes # (auto) 5.8 uL; Lymphocytes % (auto) 20.1 % (10.0-50.0); Mean Corpuscular Hemoglobin 25.3 pg (28.0-32.0); Mean Corpuscular Hgb Conc. 28.8 g/dL (32.0-36.0); Monocytes # (auto) 1.5 uL; Monocytes % (auto) 5.3 % (0.0-12.0); Neutrophils # (auto) 21.4 uL; Neutrophils % (auto) 74.1 % (37.0-80.0); Platelet Count (auto) 240 10^3/uL (140-450); Red Blood Cells 4.13 10^6/uL (4.0-5.20); Red Cell Distribution Width 19.2 % (11.8-14.3); White Blood Cell 28.9 10^3/uL (4.4-10.8)
[2019-07-13 19:54] LABS: Albumin 2.3 g/dL (3.4-5.0); Anion Gap 26 (5-15); BUN/Creatinine Ratio 12.5; Blood Urea Nitrogen 77 mg/dL (7-18); Calcium 7.1 mg/dL (8.5-10.1); Chloride 99 mmol/L (98-107); GFR African American 9 mL/min; GFR Non-African American 7 mL/min; Magnesium 2.7 mg/dL (1.6-2.6); Potassium 5.2 mmol/L (3.5-5.1); Sodium 134 mmol/L (136-145)
[2019-07-13] MEDS ORDERED: NOREPINEPHRINE 8 MG/250ML KIT 250 ML IV ONE (19:56)
[2019-07-13 19:59] LABS: Alanine Aminotransferase 28 U/L (13-56); Alkaline Phosphatase 170 U/L (45-117); Aspartate Aminotransferase 78 U/L (15-37); Bilirubin, Total 0.3 mg/dL (0.2-1.0); Total Protein 5.8 g/dL (6.4-8.2)
[2019-07-13] MEDS ORDERED: NOREPINEPHRINE 8 MG/250ML KIT 250 ML IV SCH ×2 (20:00)
[2019-07-13 20:11] LABS: Urine Amorphous Crystal FEW /hpf (None Seen); Urine Bacteria FEW /hpf (None Seen); Urine Blood Negative /uL (Negative); Urine Hyaline Cast MOD /lpf (0 - 2); Urine Specific Gravity 1.013 (1.001-1.035); Urine WBC 7 /hpf (0 - 5)
[2019-07-13] MEDS ORDERED: SODIUM BICARBONATE 8.4 % INJ 50ML VIAL IV ONE (20:15)
[2019-07-13 20:43] LABS: Carbon Dioxide 9 mmol/L (21-32)
[2019-07-13 20:44] LABS: Glucose 409 mg/dL (74-106)
[2019-07-13] MEDS ORDERED: VANCOMYCIN 1GM/250ML 250 ML IV ONE (22:00)
[2019-07-13] MEDS ORDERED: LEVOFLOXACIN 750MG 150 ML IV ONE (22:00)
[2019-07-13] MEDS: SODIUM CHLORIDE 0.9% 3,000 ML IV ONE (22:00)
[2019-07-13 22:32] LABS: Lactic Acid w/Reflex 4.6 mmol/L (0.4-2.0)
[2019-07-14 00:09] VITALS: BP 136/48
[2019-07-14 00:20] VITALS: BP 136/48
[2019-07-14] MEDS ORDERED: SODIUM CHLORIDE 0.9% 2,100 ML IV ONE (01:30)
[2019-07-14 01:55] VITALS: BP 119/54
[2019-07-14 02:45] VITALS: BP 123/31
[2019-07-14] MEDS ORDERED: InsuLIN REG 1unit/0.01ml Soln (100units/ml) IV ONE (02:45)
== END 2019-07-14 03:37 | disposition short-term general hospital (02) ==
LOC: EDUNIT# 19:02 → ER 19:11
DX: S06.5X1A Traumatic subdural hemorrhage with loss of consciousness of 30 minutes or less, initial encounter (principal); N17.9 Acute kidney failure, unspecified; E87.5 Hyperkalemia; Z86.74 Personal history of sudden cardiac arrest; F41.9 Anxiety disorder, unspecified; E11.9 Type 2 diabetes mellitus without complications; I10 Essential (primary) hypertension; R41.82 Altered mental status, unspecified; Z98.84 Bariatric surgery status; Z86.73 Personal history of transient ischemic attack (TIA), and cerebral infarction without residual deficits; Z79.4 Long term (current) use of insulin; Z88.0 Allergy status to penicillin; Z88.1 Allergy status to other antibiotic agents; W18.39XA Other fall on same level, initial encounter; Y93.89 Activity, other specified; Y92.89 Other specified places as the place of occurrence of the external cause; Y99.8 Other external cause status
CPT/HCPCS: 31500; 36415; 36556; 36600; 51702; 70450; 71045; 72125; 73501; 80053; 81001; 82805; 82962; 83605; 83735; 83880; 84484; 85025; 87040; 87070; 87205; 92950; 93005; 94761; 96365; 96366; 96367; 96368; 96375; 99285; J0171; J1815; J1956; J2250; J3370; J7030; 94002